=== PATIENT | male | born 2000 | race Caucasian/White ===

== ENCOUNTER 2021-02-26 17:32 | Emergency (ER) | payer MEDICAID, SELFPAY ==
--- NOTE | 2021-02-26 19:36 | HMH.EDUTC ---
[facility] [place] Disposition Clinical Impression: Viral syndrome, Exposure to COVID-19 virus Pharyngitis Qualifiers: Pharyngitis/tonsillitis etiology: unspecified etiology Qualified Code(s): J02.9 - Acute pharyngitis, unspecified Disposition: Home, Self-Care Condition on Discharge: Good Instructions: DI for Pharyngitis/Tonsillopharyngitis -- Adult, Preventing the Spread of Coronavirus Discharge Instructions Additional Instructions: Use the eye drops as directed. Strict hand washing in the house hold, because conjunctivitis is very contagious. Follow up with your regular doctor. GO TO THE ER FOR ANY WORSENING SYMPTOMS OR CONCERNS Prescriptions: Brompheniramine/Pseudoephed/Dm [Bromfed Dm Cough Syrup] 5 ml PO Q6HP PRN #240 syrup PRN Reason: Cough Transmission Status: Received by [id number] Azithromycin [Z-Antwan 250mg Tab*] 250 mg PO UD DOSE PK #6 tab Transmission Status: Received by [facility] Referrals: Provider,Referral, [Primary Care Provider] - Forms: Work/School Release Time of Disposition: 20:17 Medical Decision Making - Medical Records Medical records reviewed: No: I reviewed the patient's medical records. - Lev Inquiry Pt receiving controlled substance: No Vital Signs: 02/26/21 19:43 02/26/21 20:24 Temperature 98.1 F 98.3 F Temperature Source Oral Pulse Rate 69 Pulse Rate [Left] 62 Respiratory Rate 18 18 Blood Pressure 127/69 Blood Pressure [Right Arm] 125/63 Blood Pressure Mean [Right Arm] 83 02 Sat by Pulse Oximetry 99 - Lab Data Lab results reviewed: Yes: I reviewed the patient's lab results. Medical Decision Narrative: He adamantly refused the eye exam with numbing drops, johnson lamp, Fluorescein strips. HE is aware of the risk and dangers of refusing this. [facility] [place] HPI - General Stated complaint: Covid test,Sore throat,DELGADO Time Seen by Provider: 02/26/21 19:36 Other (Recalled from RN notes): Yes - History of Present Illness Provider Complaint: He states that for the past 2 days that has felt very tired, he has had a sore throat and he has been chilling. He denies any documented fever. He has not been vacinated against covid-19. - Related Data Previous Rx's Medication Instructions Recorded Azithromycin [Z-Antwan 250mg Tab*] 250 mg PO UD DOSE PK #6 tab 02/26/21 Brompheniramine/Pseudoephed/Dm 5 ml PO Q6HP PRN #240 syrup 02/26/21 [Bromfed Dm Cough Syrup] Allergies Allergy/AdvReac Type Severity Reaction Status Date / Time Penicillins Allergy Verified 02/26/21 19:[address] [facility] History - Hepatitis A Screen Attestation statement:: This patient has been screened for Hepatitis A risk factors. I have reviewed the patient's past medical history: Yes ROS Obtained: Yes All systems reviewed & no additional complaints - Constitutional Constitutional: Reports system reviewed and no additional complaints, except as docu - Eyes Eyes: Reports system reviewed and no additional complaints, except as docu - ENT Ears, Nose, Mouth, and Throat: Reports system reviewed and no additional complaints, except as docu - Cardiovascular Cardiovascular: Reports system reviewed and no additional complaints, except as docu - Respiratory Respiratory: Reports system reviewed and no additional complaints, except as docu - Gastrointestinal Gastrointestingal: Reports: system reviewed and no additional complaints, except as docu Physical Exam - General General appearance: alert, in no apparent distress - Head Head exam: atraumatic, normocephalic, normal inspection - Eye Eye exam: Present: normal appearance, PERRL, EOMI - ENT ENT exam: Present: mucous membranes moist, normal external ear exam - Expanded ENT Exam TM/Canal exam: Bilateral TM: erythema, bulging Mouth exam: Present: normal external inspection Teeth exam: Present: normal inspection Throat exam: Present: tonsillar erythema, tonsillomegaly. Absent: tonsillar exudate, R peritonsillar
[2021-02-26 19:43] VITALS: BP 125/63; PULSE 62; RESP 18; TEMP 36.7; O2SAT 99; BMI 35.4
[2021-02-26 20:24] VITALS: BP 127/69; PULSE 69; RESP 18; TEMP 36.8
[2021-02-27 16:02] LABS: UTC Strep Screen (Rapid) Negative (Negative)
== END 2021-02-26 20:26 | disposition home or self-care (01) ==
PROVIDERS: Emergency Provider Nurse Practitioner Family
DX: B34.9 Viral infection, unspecified (principal); Z20.822 Contact with and (suspected) exposure to COVID-19; J02.9 Acute pharyngitis, unspecified
CPT/HCPCS: 87880; 99202; G0463; U0003

== ENCOUNTER → 2021-04-14 15:31 | Outpatient (CLI) | payer MEDICAID, SELFPAY | PROVIDERS: Visit Provider Nurse Practitioner Family | DX: Z20.822 Contact with and (suspected) exposure to COVID-19 (principal) | CPT/HCPCS: C9803; U0003; U0005 ==

== ENCOUNTER 2021-04-16 09:51 | Emergency (ER) | payer MEDICAID, SELFPAY ==
[2021-04-16 09:55] VITALS: BP 144/77; PULSE 89; RESP 21; TEMP 37; O2SAT 99; BMI 35.4
--- NOTE | 2021-04-16 10:26 | XR_ITS ---
PROCEDURE: XR CHEST 2V CLINICAL HISTORY: cough COMPARISON: No exams were available for comparison FINDINGS: The cardiomediastinal silhouette and pulmonary vascularity are within normal limits. The lungs are clear without infiltrates, suspicious nodules, or pleural effusions. No acute bony abnormalities. IMPRESSION: No acute findings. Dictated by: Levon Mcmullen MD 04/16/2021 11:19 Levon Mcmullen MD in [place] 04/16/2021 11:19
--- NOTE | 2021-04-16 10:26 | HMH.EDUTC ---
[facility] [place] Disposition Clinical Impression: Viral syndrome Disposition: Home, Self-Care Condition on Discharge: Good Instructions: DI for Viral Syndrome, Ondansetron Additional Instructions: *Monitor Temp, Over the counter Motrin or Tylenol as directed/as needed Tylenol every 4 hours and Motrin every 6 hours (as long as your family doctor has told you that you can take it) for fever or pain. and straight to ER if unable to lower temp less than 101.0 after medication given *Warm salt water gargles may help to soothe the throat *Throat Lozenges *Warm fluids like tea with honey may help to soothe the throat *Sleep elevated *Humidifier/Vaporizer *Return if needed Straight to ER if any life threatening symptoms Follow up IMMEDIATELY for new or worsening symptoms or no Noticeable improvement over the next 48-72 hours. 911 for difficulty breathing or swallowing Prescriptions: Ondansetron [Zofran 4mg ODT] 4 mg PO TIDP PRN #12 tab PRN Reason: Nausea Transmission Status: Received by [id number] Referrals: Provider,Referral, MD [Primary Care Provider] - As needed Forms: Work/School Release Time of Disposition: 11:45 Medical Decision Making - Lev Inquiry Pt receiving controlled substance: No Lev was queried for this patient: No Vital Signs: 04/16/21 09:55 04/16/21 11:49 Temperature 98.6 F 98.6 F Temperature Source Oral Pulse Rate 89 Pulse Rate [Right Brachial] 89 Respiratory Rate 21 21 Blood Pressure 144/77 H Blood Pressure [Right Arm] 144/77 H Blood Pressure Mean [Right Arm] 99 Blood Pressure Source [Right Arm] Automatic Cuff Blood Pressure Position [Right Arm] Sitting 02 Sat by Pulse Oximetry 99 Oxygen Delivery Method Room Air - Radiology Data #1 Image(s): Chest Image Reviewed: Yes I have reviewed radiologist's interpretation IMPRESSION: No acute findings. Medical Decision Narrative: Discussed with patient and recommended getting retested for COVID and patient declined States that he didnt want to get tested again that he was more concerned with getting a chest xray to make sure it looked ok [facility] [place] HPI - General Stated complaint: Low O2, weakness Time Seen by Provider: 04/16/21 10:26 Mode of Arrival: Ambulatory Source of Information: Patient Limitations: No Limitations Description of Symptoms (Recalled from Triage Doc. by RN): PATIENT C/O SOA, NAUSEA, WEAKNESS, FATIGUE AND STOMACH PAINS X 3 DAYS. WAS TESTED FOR COVID ON FRIDAY AND WAS NEGATIVE HEENT Symptoms (Recalled from RN notes): Yes Resp Symptoms (Recalled from RN notes): Yes Skin Symptoms (Recalled from RN notes): No MS Symptoms (Recalled from RN notes): No Functional Status (Recalled from RN notes): WNL - History of Present Illness Provider Complaint: Patient states that he was feeling bad on Friday and having nausea, upset stomach, and fever State that he went to the [facility] and they tested him for COVID states that fever is better but he has continued to feel bad, upset stomach, and feeling SOA at times with coughing State that he is not coughing anything up States that today he was worried that he wasnt feeling any better so he came in - Related Data Previous Rx's Medication Instructions Recorded Ondansetron [Zofran 4mg ODT] 4 mg PO TIDP PRN #12 tab 04/16/21 Allergies Allergy/AdvReac Type Severity Reaction Status Date / Time Penicillins Allergy Verified 04/14/21 15:35 - Worker's Comp Is this a Worker's Comp case?: No [facility] History - Hepatitis A Screen Drug use history?: No High risk sexual behaviors?: No History of sexually transmitted infection?: No Currently employed?: No Childcare worker?: No Do you have indoor plumbing?: Yes Do you have electricity?: Yes Attestation statement:: This patient has been screened for Hepatitis A risk factors. I have reviewed the patient's past medical history: Yes Other Surgeries: Yes: Appendectomy Amputation: No Fractures: No
[2021-04-16 11:49] VITALS: BP 144/77; PULSE 89; RESP 21; TEMP 37; O2SAT 99
== END 2021-04-16 11:52 | disposition home or self-care (01) ==
PROVIDERS: Emergency Provider Nurse Practitioner
DX: B34.9 Viral infection, unspecified (principal); Z88.0 Allergy status to penicillin
CPT/HCPCS: 71046; 99202; G0463

== ENCOUNTER 2021-05-31 11:44 | Emergency (ER) | payer MEDICAID, SELFPAY ==
[2021-05-31 13:05] VITALS: BP 0/0; PULSE 0; RESP 0; TEMP -17.7; TEMP 0
== END 2021-05-31 13:06 | disposition left against medical advice (07) ==
LOC: UTC 11:50
PROVIDERS: Emergency Provider Nurse Practitioner Family
DX: Z53.21 Procedure and treatment not carried out due to patient leaving prior to being seen by health care provider (principal)

== ENCOUNTER → 2021-08-20 11:09 | Outpatient (CLI) | payer MEDICAID, SELFPAY | PROVIDERS: Visit Provider Nurse Practitioner | DX: Z20.822 Contact with and (suspected) exposure to COVID-19 (principal) ==

== ENCOUNTER → 2021-08-22 15:00 | Outpatient (CLI) | payer MEDICAID, SELFPAY | PROVIDERS: Visit Provider Nurse Practitioner | DX: U07.1 COVID-19 (principal) | CPT/HCPCS: C9803; U0003; U0005 ==

== ENCOUNTER 2021-10-28 19:18 | Emergency (ER) | payer MEDICAID, SELFPAY ==
[2021-10-28 19:58] VITALS: BP 137/79; PULSE 101; RESP 19; TEMP 38.3; O2SAT 98; BMI 38.4
[2021-10-28 20:09] LABS: Strep Scrn Group A (Rapid) Negative (Negative)
--- NOTE | 2021-10-28 20:25 | HMH.EDUTC ---
[facility] [place] Disposition Clinical Impression: Strep throat Disposition: Home, Self-Care Condition on Discharge: Good Instructions: Strep Throat, DI for Strep Throat Additional Instructions: Drink plenty of fluids. Take tylenol or ibuprofen for pain or fever. Take the medications as directed. Follow up with your regular doctor. GO TO THE ER FOR ANY WORSENING SYMPTOMS Referrals: Provider,Referral, MD [Primary Care Provider] - Forms: Work/School Release Time of Disposition: 20:52 Medical Decision Making - Medical Records Medical records reviewed: No: I reviewed the patient's medical records. - Lev Inquiry Pt receiving controlled substance: No Vital Signs: 10/28/21 19:58 10/28/21 20:57 Temperature 101 F H 98.9 F Temperature Source Oral Pulse Rate 101 H Pulse Rate [Left] 101 H Respiratory Rate 19 19 Blood Pressure 137/79 Blood Pressure [Right Arm] 137/79 Blood Pressure Mean [Right Arm] 98 02 Sat by Pulse Oximetry 98 - Lab Data Lab results reviewed: Yes: I reviewed the patient's lab results. Lab Results 10/28/21 19:51: Group A Strep Rapid Negative 10/28/21 19:51: Influenza Type A Ag Negative, Influenza Type B Ag Negative Orders (Tests/Meds): ED MEDICATIONS Discontinued Medications Generic Name Dose Route Start Last Admin Trade Name Rejiq PRN Reason Stop Dose Admin Acetaminophen 975 mg 10/28/21 20:00 10/28/21 20:04 Acetaminophen 325mg Tab PO 10/28/21 20:01 975 mg ONCE ONE Administration Cefdinir 300 mg 10/29/21 20:43 Cefdinir 300mg Capsule PO 10/29/21 20:44 ONCE ONE Cefdinir 300 mg 10/28/21 20:43 10/28/21 20:46 Cefdinir 300mg Capsule PO 10/28/21 20:44 300 mg ONCE ONE Administration [facility] [place] HPI - General Stated complaint: sore throat Time Seen by Provider: 10/28/21 20:25 Mode of Arrival: Ambulatory Source of Information: Patient Limitations: No Limitations Description of Symptoms (Recalled from Triage Doc. by RN): pt c/o weakness, cough, chills and body aches since yesterday. HEENT Symptoms (Recalled from RN notes): Yes Resp Symptoms (Recalled from RN notes): Yes Skin Symptoms (Recalled from RN notes): No MS Symptoms (Recalled from RN notes): No Functional Status (Recalled from RN notes): wnl - History of Present Illness Provider Complaint: He c/o sore throat for the past 2 days - Related Data Previous Rx's Medication Instructions Recorded Oseltamivir Phosphate [Tamiflu 75 mg PO BID #10 cap 10/30/21 75mg Capsule] Allergies Allergy/AdvReac Type Severity Reaction Status Date / Time Penicillins Allergy Verified 04/14/21 15:35 - Worker's Comp Is this a Worker's Comp case?: No [facility] History - Hepatitis A Screen Drug use history?: No High risk sexual behaviors?: No History of sexually transmitted infection?: No Currently employed?: No Childcare worker?: No Do you have indoor plumbing?: Yes Do you have electricity?: Yes Attestation statement:: This patient has been screened for Hepatitis A risk factors. I have reviewed the patient's past medical history: Yes Other Surgeries: Yes: Appendectomy Amputation: No Fractures: No - Social History Smoking Status: Current every day smoker Alcohol Intake: current Alcohol Intake Frequency:: holidays/special occasions only Occupational Status: employed ROS Obtained: Yes All systems reviewed & no additional complaints - Constitutional Constitutional: Reports as per HPI - Eyes Eyes: Denies eye discharge - ENT Ears, Nose, Mouth, and Throat: Reports as per HPI - Cardiovascular Cardiovascular: Denies chest pain - Respiratory Respiratory: Denies chest congestion, Reports cough, Denies dyspnea, Denies stridor, Denies wheezing Physical Exam - General General appearance: alert, in no apparent distress - Head Head exam: atraumatic, normocephalic, normal inspection - Eye Eye exam: Present: normal appearance, PERRL, EOMI - ENT ENT exam
[2021-10-28 20:31] LABS: UTC Influenza A Antigen Negative (Negative); UTC Influenza B Antigen Negative (Negative)
[2021-10-28 20:57] VITALS: BP 137/79; PULSE 101; RESP 19; TEMP 37.2
== END 2021-10-28 20:59 | disposition home or self-care (01) ==
PROVIDERS: Emergency Provider Nurse Practitioner Family
DX: J02.9 Acute pharyngitis, unspecified (principal); R53.1 Weakness; M79.10 Myalgia, unspecified site; F17.210 Nicotine dependence, cigarettes, uncomplicated; Z88.0 Allergy status to penicillin
CPT/HCPCS: 87430; 87804; 99212; G0463

== ENCOUNTER 2021-10-30 11:23 | Emergency (ER) | payer MEDICAID, SELFPAY ==
[2021-10-30 12:40] VITALS: BP 134/67; PULSE 75; RESP 18; TEMP 36.8; O2SAT 99; BMI 38.2
[2021-10-30 12:53] LABS: UTC Influenza A Antigen Positive (Negative); UTC Influenza B Antigen Negative (Negative)
--- NOTE | 2021-10-30 13:06 | HMH.EDUTC ---
[facility] [place] Disposition Clinical Impression: Influenza A Disposition: Home, Self-Care Condition on Discharge: Good Instructions: DI for Influenza -- Adult, Influenza Additional Instructions: Drink plenty of fluids. Take tylenol or ibuprofen for pain or fever. Take the medications as directed. Follow up with your regular doctor. GO TO THE ER FOR ANY WORSENING SYMPTOMS Prescriptions: Oseltamivir Phosphate [Tamiflu 75mg Capsule] 75 mg PO BID #10 cap Transmission Status: Pending to [id number] Referrals: Provider,Referral, [Primary Care Provider] - Forms: Work/School Release Time of Disposition: 13:19 Medical Decision Making - Medical Records Medical records reviewed: No: I reviewed the patient's medical records. - Lev Inquiry Pt receiving controlled substance: No Vital Signs: 10/30/21 12:40 Temperature 98.2 F Temperature Source Oral Pulse Rate [Right Brachial] 75 Respiratory Rate 18 Blood Pressure [Right Arm] 134/67 Blood Pressure Mean [Right Arm] 89 Blood Pressure Source [Right Arm] Automatic Cuff Blood Pressure Position [Right Arm] Sitting 02 Sat by Pulse Oximetry 99 Oxygen Delivery Method Room Air - Lab Data Lab results reviewed: Yes: I reviewed the patient's lab results. Lab Results 10/30/21 12:27: Influenza Type A Ag Positive A, Influenza Type B Ag Negative [facility] [place] HPI - General Stated complaint: fever, sore throat, cough Time Seen by Provider: 10/30/21 13:16 Mode of Arrival: Ambulatory Source of Information: Patient Limitations: No Limitations Description of Symptoms (Recalled from Triage Doc. by RN): PATIENT C/O FEVER, CHILLS, COUGH AND SORE THROAT SINCE FRIDAY HEENT Symptoms (Recalled from RN notes): Yes Resp Symptoms (Recalled from RN notes): Yes Skin Symptoms (Recalled from RN notes): No MS Symptoms (Recalled from RN notes): No Functional Status (Recalled from RN notes): WNL - History of Present Illness Provider Complaint: He is back today to have a influenza test to confirm influenza for his work. He was here 2 days ago and tested negative, but he was tested at home and it was positive. He states that he is starting to feel better, but he is still running a fever at times through the day. - Related Data Previous Rx's Medication Instructions Recorded Oseltamivir Phosphate [Tamiflu 75 mg PO BID #10 cap 10/30/21 75mg Capsule] Allergies Allergy/AdvReac Type Severity Reaction Status Date / Time Penicillins Allergy Verified 04/14/21 15:35 - Worker's Comp Is this a Worker's Comp case?: No [facility] History - Hepatitis A Screen Drug use history?: No High risk sexual behaviors?: No History of sexually transmitted infection?: No Currently employed?: No Childcare worker?: No Do you have indoor plumbing?: Yes Do you have electricity?: Yes Attestation statement:: This patient has been screened for Hepatitis A risk factors. I have reviewed the patient's past medical history: Yes Other Surgeries: Yes: Appendectomy Amputation: No Fractures: No - Social History Smoking Status: Current every day smoker Alcohol Intake: current Alcohol Intake Frequency:: holidays/special occasions only Occupational Status: employed ROS Obtained: Yes All systems reviewed & no additional complaints - Constitutional Constitutional: Reports as per HPI - Eyes Eyes: Denies eye discharge - ENT Ears, Nose, Mouth, and Throat: Reports as per HPI - Cardiovascular Cardiovascular: Denies chest pain - Respiratory Respiratory: Reports chest congestion, Reports cough, Denies dyspnea, Denies stridor, Denies wheezing Physical Exam - General General appearance: alert, in no apparent distress - Head Head exam: atraumatic, normocephalic, normal inspection - Eye Eye exam: Present: normal appearance, PERRL, EOMI - ENT ENT exam: Present: normal exam, normal oropharynx, mucous membranes moist, TM's normal bilaterally, normal external ear exam
[2021-10-30 13:23] VITALS: BP 134/67; PULSE 75; RESP 18; TEMP 36.8; O2SAT 99
== END 2021-10-30 13:33 | disposition home or self-care (01) ==
PROVIDERS: Emergency Provider Nurse Practitioner Family
DX: J10.1 Influenza due to other identified influenza virus with other respiratory manifestations (principal); F17.210 Nicotine dependence, cigarettes, uncomplicated
CPT/HCPCS: 87804; 99212; G0463

== ENCOUNTER → 2021-11-09 12:12 | Outpatient (CLI) | payer MEDICAID, SELFPAY ==
--- NOTE | 2021-11-09 12:23 | XR_ITS ---
FINAL REPORT CLINICAL HISTORY: SOB,WHEEZING COMPARISON: April 16, 2021 FINDINGS: TWO-VIEW CHEST The heart size is normal. The mediastinum is normal. There is bronchial wall thickening consistent with bronchitis. There is no pneumothorax. IMPRESSION: Bronchial wall thickening consistent with bronchitis. Reviewed, Interpreted and Dictated by Craig Ballesteros III, MD Transcribed by Lakshmi Ramos Authenticated by Craig Ballesteros III, MD on 11/09/2021 01:32:[address] [facility]
== END ==
PROVIDERS: PCP Nurse Practitioner Family; Visit Provider Nurse Practitioner Family
DX: R06.02 Shortness of breath (principal); R06.2 Wheezing
CPT/HCPCS: 71046

== ENCOUNTER 2022-05-19 13:37 | Emergency (ER) | payer BC, SELFPAY ==
[2022-05-19 15:00] VITALS: BP 134/88; PULSE 90; RESP 18; TEMP 36.8; O2SAT 98; BMI 32.3
--- NOTE | 2022-05-19 15:09 | EXP.UTC ---
Discharge Plan Disposition Patient Disposition: Home, Self-Care Condition: Good Prescriptions Prescriptions: New brpswkqujjivbxe-zoulkgrom-BG [Bromfed DM] 2-30-10 mg/5 mL syrup 5 ml PO Q6H PRN (Reason: cold symptoms) Qty: 118 0RF Referrals Follow up/Referrals: Eliz Baumann MD [Primary Care Provider] - See instructions Activity Restrictions/Add. Instructions Additional Instructions/Restrictions: covid swab was sent to lab, call tomorrow for results. self isolate until test results are known to be negative No sign of a bacterial infection. Likely viral. Viruses can take 7-14 days to run their course. Nasal saline and bulb syringe or nose Jennifer to remove nasal drainage to help with nasal congestion. Hard to eat, drink, sleep with nasal congestion so important to keep this cleaned out. Monitor temp. Tylenol or Motrin as needed for pain or fever Encourage fluids, water, Gatorade, Powerade, Pedialyte if /toddler/child Warm salt water gargles Warm fluids Sore throat lozenges Sleep elevated Humidifier/vaporizer Follow-up immediately for new or worsening symptoms or no noticeable improvement over the next 48-72 hours. Clinical Impressions Clinical Impression: Exposure to COVID-19 virus Stand Alone Forms Stand Alone Forms: Work/School Release Discharge ED Provider: Erika ([facility])Trista [facility] [place] HPI General Stated complaint: Covid + 05/19 Covid test, fever, DELGADO, Chills Mode of Arrival: Ambulatory Source of Information: Patient Time Seen by Provider: 05/19/22 15:09 HEENT Symptoms (Recalled from RN notes): Yes Resp Symptoms (Recalled from RN notes): Yes Skin Symptoms (Recalled from RN notes): No GI/ Symptoms (Recalled from RN notes): No MS Symptoms (Recalled from RN notes): No Card Symptoms (Recalled from RN notes): No Other (Recalled from RN notes): No History of Present Illness Provider Complaint: 21 yr old male presents for nasal congestion, sore throat, body aches, chills and fever. has been exposed to covid and flu. home covid test is positive Related Data Previous Rx's Medication Instructions Recorded hwbanxczwdfypbi-kdckednfvgjgzyx-TS 5 ml PO Q6H PRN cold symptoms #118 10/30/22 2 mg-30 mg-10 mg/5 mL oral syrup mL (Bromfed DM) Allergies Allergy/AdvReac Type Severity Reaction Status Date / Time Penicillins Allergy Verified 11/29/21 15:37 PFSH PFSH Social History , [employer] INTEGRATION DEVELOPER) Smoking Status: Current every day smoker alcohol intake: current current occupational status: employed Travel in the last 8 weeks: None ROS Obtained: Yes All systems reviewed & no additional complaints except as documented Constitutional Constitutional: Reports system reviewed and no additional complaints, except as documented and Reports fever(s) Eyes Eyes: Reports system reviewed and no additional complaints, except as documented ENT Ears, Nose, Mouth, and Throat: Reports system reviewed and no additional complaints, except as documented, Reports nasal congestion, Reports nasal discharge, Reports post nasal drip, Reports sinus pressure and Reports sore throat Cardiovascular Cardiovascular: Reports system reviewed and no additional complaints, except as documented Respiratory Respiratory: Reports system reviewed and no additional complaints, except as documented Gastrointestinal Gastrointestingal: Reports system reviewed and no additional complaints, except as documented Genitourinary Male Genitourinary: Reports system reviewed and no additional complaints, except as documented Musculoskeletal Musculoskeletal: Reports system reviewed and no additional complaints, except as documented Integumentary/Breasts Skin/Breast: Reports system reviewed and no additional complaints, except as documented Neurologic Neurologic: Reports system reviewed and no additional complaints, except as documented Endocrine Endocrine: Reports system reviewed and no additional complaints
[2022-05-19 15:28] VITALS: BP 134/88; PULSE 90; RESP 18; TEMP 36.8; O2SAT 98
[2022-05-19 20:34] LABS: UTC Influenza A Antigen Negative (Negative); UTC Influenza B Antigen Negative (Negative)
== END 2022-05-19 15:34 | disposition home or self-care (01) ==
PROVIDERS: Emergency Provider Nurse Practitioner Family; PCP Nurse Practitioner Family
DX: U07.1 COVID-19 (principal)
CPT/HCPCS: 87804; 99212; C9803; G0463; U0003; U0005

== ENCOUNTER 2022-09-05 14:29 | Emergency (ER) | payer BC, SELFPAY ==
--- NOTE | 2022-09-05 14:39 | EXP.UTC ---
Discharge Plan Disposition Patient Disposition: Home, Self-Care Condition: Good Prescriptions Prescriptions: New ondansetron 4 mg Tablet,Disintegrating 4 mg PO Q8H PRN (Reason: Nausea) Qty: 20 0RF No Action [id number]-[id number]-VG [Bromfed DM] 2-30-10 mg/5 mL syrup 5 ml PO Q6H PRN (Reason: cold symptoms) Qty: 118 0RF Referrals Follow up/Referrals: Provider,Referral, MD [Primary Care Provider] - See instructions Activity Restrictions/Add. Instructions Additional Instructions/Restrictions: Drink plenty of fluids. Take tylenol or ibuprofen for pain or fever. Take the medications as directed. Follow up with your regular doctor. GO TO THE ER FOR ANY WORSENING SYMPTOMS Clinical Impressions Clinical Impression: Gastroenteritis Stand Alone Forms Stand Alone Forms: Work/School Release Instructions Patient Instructions: DI for Viral Gastroenteritis -- Adult, Ondansetron Discharge ED Provider: Fortino Umana [facility] General Stated complaint: vomitting,Diarrhea Time Seen by Provider: 09/05/22 14:39 History of Present Illness Provider Complaint: He states that for the past 3 days he has had n/v/d. He has not vomited since day before yesterday, but his nausea, poor appetite, and diarrhea has continued. He has crampy abdominal pain at times. He does not have an appendix. Related Data Previous Rx's Medication Instructions Recorded kdrswzojmdwskur-qtyscxqwpjumwbd-HL 5 ml PO Q6H PRN cold symptoms #118 05/19/22 2 mg-30 mg-10 mg/5 mL oral syrup mL (Bromfed DM) ondansetron 4 mg disintegrating 4 mg PO Q8H PRN Nausea #20 tabs 09/05/22 tablet Allergies Allergy/AdvReac Type Severity Reaction Status Date / Time Penicillins Allergy Verified 11/29/21 15:37 [facility] Disclaimer: The information contained in this section may have been updated after the patient was seen, as this information can be updated by other users. Social History Smoking Status: Current every day smoker alcohol intake: current current occupational status: employed Travel in the last 8 weeks: None ROS Obtained: Yes All systems reviewed & no additional complaints except as documented Constitutional Constitutional: Denies chills, Denies fever(s) and Reports poor appetite ENT Ears, Nose, Mouth, and Throat: Denies dizziness and Denies sore throat Cardiovascular Cardiovascular: Denies dyspnea Respiratory Respiratory: Denies chest congestion, Denies cough and Denies dyspnea Gastrointestinal Gastrointestingal: Reports as per HPI, cramping, diarrhea, nausea and vomiting; Denies abdominal pain, hematochezia or melena Genitourinary Male Genitourinary: Denies hematuria, Denies urinary frequency, Denies urinary hesitancy, Denies urinary incontinence and Denies urinary urgency Musculoskeletal Musculoskeletal: Denies arthralgias Integumentary/Breasts Skin/Breast: Denies rash Neurologic Neurologic: Denies dizziness Physical Exam General General appearance: alert and in no apparent distress Head Head exam: atraumatic and normocephalic Eye Eye exam: Present normal appearance, PERRL and EOMI ENT ENT exam: Present normal exam, normal oropharynx, mucous membranes moist, TM's normal bilaterally and normal external ear exam Neck Neck exam: Present normal inspection, full ROM and trachea midline; Absent tenderness, meningismus or lymphadenopathy Chest Chest inspection: Present normal inspection and symmetric chest wall rise; Absent tenderness, rash or abscess Respiratory Respiratory exam: Present normal lung sounds bilaterally; Absent respiratory distress, wheezes or stridor Cardiovascular Cardiovascular exam: Present regular rate and normal rhythm; Absent irregular rhythm, systolic murmur, diastolic murmur or JVD Abdominal Exam Abdominal exam: Present soft and hyperactive bowel sounds; Absent distention, tenderness, guarding, rebound, rigidity, psoas sign, obturator s
[2022-09-05 14:48] VITALS: BP 121/67; PULSE 67; RESP 18; TEMP 36.9; O2SAT 100; BMI 36.1
[2022-09-05 15:31] VITALS: BP 121/67; PULSE 67; RESP 18; TEMP 36.9; O2SAT 100
== END 2022-09-05 15:32 | disposition home or self-care (01) ==
PROVIDERS: Emergency Provider Nurse Practitioner Family
DX: K52.9 Noninfective gastroenteritis and colitis, unspecified (principal)
CPT/HCPCS: 99212; 99213; G0463

== ENCOUNTER 2022-10-21 08:03 | Emergency (ER) | payer BC, SELFPAY ==
--- NOTE | 2022-10-21 08:19 | EXP.UTC ---
Discharge Plan Disposition Patient Disposition: Home, Self-Care Condition: Good Prescriptions Prescriptions: New benzonatate [benzonatate] 100 mg capsule 100 mg PO TIDP PRN (Reason: Cough) Qty: 30 0RF methylprednisolone 4 mg Tablets,Dose Pack 4 mg PO DIRECTED Qty: 21 0RF cefdinir 300 mg capsule 300 mg PO BID Qty: 20 0RF Referrals Follow up/Referrals: Eliz Baumann MD [Primary Care Provider] - See instructions Activity Restrictions/Add. Instructions Additional Instructions/Restrictions: Drink plenty of fluids. Take tylenol or ibuprofen for pain or fever. Take the medications as directed. Follow up with your regular doctor. GO TO THE ER FOR ANY WORSENING SYMPTOMS Clinical Impressions Clinical Impression: Strep throat Stand Alone Forms Stand Alone Forms: Work/School Release Instructions Patient Instructions: Strep Throat, DI for Strep Throat Discharge ED Provider: Fortino Umana [facility] HPI General Stated complaint: sore throat hard to breathe- aches-chill Time Seen by Provider: 10/21/22 08:14 History of Present Illness Provider Complaint: He states that he has had a sore throat and fever for the past 2 days. Related Data Previous Rx's Medication Instructions Recorded benzonatate 100 mg capsule 100 mg PO TIDP PRN Cough #30 caps 10/21/22 cefdinir 300 mg capsule 300 mg PO BID #20 caps 10/21/22 methylprednisolone 4 mg tablets in 4 mg PO DIRECTED #21 tabs 10/21/22 a dose pack Allergies Allergy/AdvReac Type Severity Reaction Status Date / Time Penicillins Allergy Verified 10/21/22 08:30 [facility] Disclaimer: The information contained in this section may have been updated after the patient was seen, as this information can be updated by other users. Social History Smoking Status: Current every day smoker alcohol intake: current current occupational status: employed Travel in the last 8 weeks: None ROS Obtained: Yes All systems reviewed & no additional complaints except as documented Constitutional Constitutional: Reports chills and Reports fever(s) Eyes Eyes: Denies eye discharge ENT Ears, Nose, Mouth, and Throat: Reports as per HPI Cardiovascular Cardiovascular: Denies chest pain Respiratory Respiratory: Denies chest congestion and Reports cough Gastrointestinal Gastrointestingal: Reports nausea; Denies abdominal pain, constipation, cramping, diarrhea or vomiting Musculoskeletal Musculoskeletal: Denies arthralgias Integumentary/Breasts Skin/Breast: Denies rash Neurologic Neurologic: Denies paresthesias Physical Exam General General appearance: alert and in no apparent distress Head Head exam: atraumatic, normocephalic and normal inspection Eye Eye exam: Present normal appearance, PERRL and EOMI ENT ENT exam: Present mucous membranes moist and normal external ear exam Expanded ENT Exam TM/Canal exam: Bilateral TM: erythema and bulging Nose exam: Absent sinus tenderness Mouth exam: Present normal external inspection; Absent drooling Teeth exam: Present normal inspection Throat exam: Present tonsillar erythema, tonsillomegaly and tonsillar exudate Neck Neck exam: Present normal inspection, full ROM and trachea midline; Absent tenderness, meningismus or lymphadenopathy Chest Chest inspection: Present normal inspection and symmetric chest wall rise; Absent tenderness Respiratory Respiratory exam: Present normal lung sounds bilaterally; Absent respiratory distress, wheezes or stridor Cardiovascular Cardiovascular exam: Present regular rate and normal rhythm; Absent systolic murmur or diastolic murmur Abdominal Exam Abdominal exam: Present soft and normal bowel sounds; Absent distention, tenderness, guarding, rebound or rigidity Extremities Exam Extremities exam: Present normal inspection and normal capillary refill; Absent calf tenderness Back Exam Back exam: Present normal inspection and fu
[2022-10-21 08:20] VITALS: BP 127/82; PULSE 103; RESP 20; TEMP 38.1; O2SAT 97; BMI 39.3
[2022-10-21 08:30] LABS: UTC Strep Screen (Rapid) Positive (Negative)
[2022-10-21 08:49] VITALS: BP 127/82; PULSE 103; RESP 20; TEMP 37.6; O2SAT 97
== END 2022-10-21 08:40 | disposition home or self-care (01) ==
PROVIDERS: Emergency Provider Nurse Practitioner Family; PCP Nurse Practitioner Family
DX: J02.0 Streptococcal pharyngitis (principal); R05.1 Acute cough; R50.9 Fever, unspecified; F17.200 Nicotine dependence, unspecified, uncomplicated
CPT/HCPCS: 87880; 99212; 99214; G0463

== ENCOUNTER 2023-04-03 09:02 | Emergency (ER) | payer BC, SELFPAY ==
[2023-04-03 09:10] VITALS: BP 134/77; PULSE 106; RESP 18; TEMP 36.9; O2SAT 99; BMI 39.4
--- NOTE | 2023-04-03 09:12 | EXP.UTC ---
Discharge Plan Disposition Patient Disposition: Home, Self-Care Condition: Good Prescriptions Prescriptions: New cefdinir 300 mg capsule 300 mg PO BID Qty: 20 0RF Referrals Follow up/Referrals: Eliz Baumann MD [Primary Care Provider] - See instructions Activity Restrictions/Add. Instructions Additional Instructions/Restrictions: Drink plenty of fluids. Take tylenol or ibuprofen for pain or fever. Take the medications as directed. Follow up with your regular doctor. GO TO THE ER FOR ANY WORSENING SYMPTOMS Clinical Impressions Clinical Impression: Pharyngitis Stand Alone Forms Stand Alone Forms: Work/School Release Instructions Patient Instructions: DI for Pharyngitis/Tonsillopharyngitis -- Child, Sore Throat Discharge ED Provider: Fortino Umana [facility] HPI General Stated complaint: sore throat, tired Time Seen by Provider: 04/03/23 09:12 History of Present Illness Provider Complaint: He c/o sore throat, chills and body aches since around 0200 this am. Related Data Previous Rx's Medication Instructions Recorded cefdinir 300 mg capsule 300 mg PO BID #20 caps 04/03/23 Allergies Allergy/AdvReac Type Severity Reaction Status Date / Time Penicillins Allergy Verified 04/03/23 09:18 [facility] Disclaimer: The information contained in this section may have been updated after the patient was seen, as this information can be updated by other users. Social History Smoking Status: Current every day smoker alcohol intake: current current occupational status: employed Travel in the last 8 weeks: None ROS Obtained: Yes All systems reviewed & no additional complaints except as documented Constitutional Constitutional: Reports chills and Reports fever(s) Eyes Eyes: Denies eye discharge ENT Ears, Nose, Mouth, and Throat: Reports as per HPI Cardiovascular Cardiovascular: Denies chest pain Respiratory Respiratory: Denies chest congestion and Reports cough Gastrointestinal Gastrointestingal: Reports nausea; Denies abdominal pain, constipation, cramping, diarrhea or vomiting Musculoskeletal Musculoskeletal: Denies arthralgias Integumentary/Breasts Skin/Breast: Denies rash Neurologic Neurologic: Denies paresthesias Physical Exam General General appearance: alert and in no apparent distress Head Head exam: atraumatic, normocephalic and normal inspection Eye Eye exam: Present normal appearance, PERRL and EOMI ENT ENT exam: Present mucous membranes moist and normal external ear exam Expanded ENT Exam TM/Canal exam: Bilateral TM: erythema and bulging Nose exam: Absent sinus tenderness Mouth exam: Present normal external inspection; Absent drooling Teeth exam: Present normal inspection Throat exam: Present tonsillar erythema, tonsillomegaly and tonsillar exudate Neck Neck exam: Present normal inspection, full ROM and trachea midline; Absent tenderness, meningismus or lymphadenopathy Chest Chest inspection: Present normal inspection and symmetric chest wall rise; Absent tenderness Respiratory Respiratory exam: Present normal lung sounds bilaterally; Absent respiratory distress, wheezes or stridor Cardiovascular Cardiovascular exam: Present regular rate and normal rhythm; Absent systolic murmur or diastolic murmur Abdominal Exam Abdominal exam: Present soft and normal bowel sounds; Absent distention, tenderness, guarding, rebound or rigidity Extremities Exam Extremities exam: Present normal inspection and normal capillary refill; Absent calf tenderness Back Exam Back exam: Present normal inspection and full ROM; Absent tenderness, CVA tenderness (R) or CVA tenderness (L) Neurological Exam Neurological exam: Present alert, oriented X3 and CN II-XII intact Psychiatric Psychiatric exam: Present normal affect and normal mood Skin Skin exam: Present warm, dry, intact and normal color Medical Decision Making Medical Records [facility]
[2023-04-03 09:28] LABS: UTC Strep Screen (Rapid) Negative (Negative)
[2023-04-03 09:55] VITALS: BP 134/77; PULSE 106; RESP 18; TEMP 36.9; O2SAT 99
== END 2023-04-03 09:55 | disposition home or self-care (01) ==
PROVIDERS: Emergency Provider Nurse Practitioner Family; PCP Nurse Practitioner Family
DX: J02.9 Acute pharyngitis, unspecified (principal); R68.83 Chills (without fever); F17.210 Nicotine dependence, cigarettes, uncomplicated
CPT/HCPCS: 87635; 87880; 99212; 99214; G0463

== ENCOUNTER 2023-04-08 08:02 | Emergency (ER) | payer BC, SELFPAY ==
[2023-04-08 08:21] VITALS: BP 129/62; PULSE 60; RESP 16; TEMP 36.8; O2SAT 98; BMI 37.2
--- NOTE | 2023-04-08 08:25 | EXP.UTC ---
Discharge Plan Disposition Patient Disposition: Home, Self-Care Condition: Good Prescriptions Prescriptions: New methylprednisolone 4 mg Tablets,Dose Pack 4 mg PO DIRECTED Qty: 21 0RF azithromycin [Zithromax] 250 mg tablet 250 mg PO UD DOSE PK Qty: 6 0RF Rx Instructions: Take two (2) tablets today, then one (1) tablet days #2 thru #5 [id number]-[id number]-UK [Bromfed DM] 2-30-10 mg/5 mL Syrup 5 ml PO Q6H PRN (Reason: Cough) Qty: 240 0RF No Action cefdinir 300 mg capsule 300 mg PO BID Qty: 20 0RF Referrals Follow up/Referrals: Eliz Baumann MD [Primary Care Provider] - See instructions Activity Restrictions/Add. Instructions Additional Instructions/Restrictions: Drink plenty of fluids. Take tylenol or ibuprofen for pain or fever. Stop the cefdinir (antibiotics) that you are on and start the new medications. Take the medications as directed. Follow up with your regular doctor. GO TO THE ER FOR ANY WORSENING SYMPTOMS Clinical Impressions Clinical Impression: Pharyngitis, Sinusitis Stand Alone Forms Stand Alone Forms: Work/School Release Instructions Patient Instructions: DI for Sinusitis Discharge ED Provider: Fortino Umana [facility] General Stated complaint: sore throat, cough Mode of Arrival: Ambulatory Source of Information: Patient Limitations: No Limitations Time Seen by Provider: 04/08/23 08:25 Description of Symptoms (Recalled from Triage Doc. by RN): Pt c/o cough chills sore throat and headache since last week. States that he was seen here last Friday and tested for strep and covid which were negative and was given an antibiotic which isn't working. HEENT Symptoms (Recalled from RN notes): Yes Resp Symptoms (Recalled from RN notes): Yes Skin Symptoms (Recalled from RN notes): No MS Symptoms (Recalled from RN notes): No Functional Status (Recalled from RN notes): na History of Present Illness Provider Complaint: He is back today with complaints of not getting better. He continues to have sinus congestion, sore throat and a cough. Related Data Previous Rx's Medication Instructions Recorded cefdinir 300 mg capsule 300 mg PO BID #20 caps 04/03/23 azithromycin 250 mg tablet 250 mg PO UD DOSE PK #6 tabs 04/08/23 (Zithromax) pqjxogtyebigvsd-ijsroureqrztiri-OD 5 ml PO Q6H PRN Cough #240 mL 04/08/23 2 mg-30 mg-10 mg/5 mL oral syrup (Bromfed DM) methylprednisolone 4 mg tablets in 4 mg PO DIRECTED #21 tabs 04/08/23 a dose pack Allergies Allergy/AdvReac Type Severity Reaction Status Date / Time Penicillins Allergy Verified 04/03/23 09:18 Worker's Comp Is this a Worker's Comp case?: No PFSH PFS Disclaimer: The information contained in this section may have been updated after the patient was seen, as this information can be updated by other users. Social History Smoking Status: Current every day smoker alcohol intake: current current occupational status: employed Travel in the last 8 weeks: None ROS Obtained: Yes All systems reviewed & no additional complaints except as documented Constitutional Constitutional: Reports chills and Denies fever(s) Eyes Eyes: Denies eye discharge ENT Ears, Nose, Mouth, and Throat: Reports as per HPI Cardiovascular Cardiovascular: Denies chest pain Respiratory Respiratory: Denies chest congestion and Reports cough Gastrointestinal Gastrointestingal: Reports nausea; Denies abdominal pain, constipation, cramping, diarrhea or vomiting Musculoskeletal Musculoskeletal: Denies arthralgias Integumentary/Breasts Skin/Breast: Denies rash Neurologic Neurologic: Denies paresthesias Physical Exam General General appearance: alert and in no apparent distress Eye Eye exam: Present normal appearance, PERRL and EOMI ENT ENT exam: Present mucous membranes moist and normal external ear exam Expanded ENT Exam External ear exam: Present normal
[2023-04-08 08:48] LABS: Adenovirus,PCR Not Detected (NotDetected); Bordetella Pertussis Not Detected (NotDetected); Chlamydophila Pneumoniae, PCR Not Detected (NotDetected); Coronavirus 19, PCR Not Detected (NotDetected); Coronavirus 229E Not Detected (NotDetected); Coronavirus NL63 Not Detected (NotDetected); Coronavirus OC43 Not Detected (NotDetected); Coronovirus HKU1,PCR Not Detected (NotDetected); Human Metapneumovirus Not Detected (NotDetected); Influenza A, PCR Not Detected (NotDetected); Influenza AH1, 2009 Not Detected (NotDetected); Influenza AH1, PCR Not Detected (NotDetected); Influenza AH3,PCR Not Detected (NotDetected); Influenza B, PCR Not Detected (NotDetected); Mycoplasma Pneumoniae, PCR Not Detected (NotDetected); Parainfluenza 1, PCR Not Detected (NotDetected); Parainfluenza 2, PCR Not Detected (NotDetected); Parainfluenza 3, PCR Not Detected (NotDetected); Parainfluenza 4, PCR Not Detected (NotDetected); Respiratory Syncytial Virus Not Detected (NotDetected); Rhinovirus/Enterovirus Not Detected (NotDetected)
[2023-04-08 08:54] VITALS: BP 129/62; PULSE 60; RESP 16; TEMP 36.8; O2SAT 98
== END 2023-04-08 08:55 | disposition home or self-care (01) ==
PROVIDERS: Emergency Provider Nurse Practitioner Family; PCP Nurse Practitioner Family
DX: J01.90 Acute sinusitis, unspecified (principal); J02.9 Acute pharyngitis, unspecified; F17.210 Nicotine dependence, cigarettes, uncomplicated
CPT/HCPCS: 87581; 87632; 87798; 99212; 99214; G0463

== ENCOUNTER → 2023-07-08 13:34 | Outpatient (CLI) | payer BC, SELFPAY ==
--- NOTE | 2023-07-08 13:44 | ECG_ITS ---
APPROVED REPORT Exam: Resting ECG HR:70 bpm ECG Measurements Heart Rate 70 AXES NV 140 P -20 QRSd 92 QRS 49 QT 357 T -1 QTc 377 Conclusion SINUS RHYTHM POSSIBLE INFERIOR MYOCARDIAL INFARCTION , OF INDETERMINATE AGE [30 ms Q WAVE IN II/aVF] ABNORMAL ECG UNCONFIRMED REPORT Electronically signed by : Bubba Fagan MD 07/09/2023 18:40:43
[2023-07-08 14:22] LABS: Basophils # 0.1 K/mm3 (0-0.2); Basophils % 0.4 % (0.1-2.0); Eosinophils # 0.3 K/mm3 (0.0-0.4); Eosinophils % 2.7 % (0.1-12.0); Hemoglobin 14.7 g/dL (14.1-18.0); Lymphocytes % 18.9 % (10-50); Mean Corpuscular HGB Conc 34.3 g/dL (31.8-35.4); Mean Corpuscular Hemoglobin 28.8 pg (27.0-31.2); Mean Platelet Volume 6.5 fl (7.4-10.4); Monocytes # 0.5 K/mm3 (0.1-1.0); Monocytes % 4.6 % (1.7-9.3); Neutrophils # 7.6 K/mm3 (1.8-7.8); Neutrophils % 73.3 % (37.0-80.0); Platelet Count 354 K/mm3 (142-424); Red Blood Count 5.12 M/mm3 (4.60-6.20); Red Cell Distribution Width 13.5 % (11.5-17.5); White Blood Count 10.3 K/mm3 (4.8-10.8)
[2023-07-08 14:36] LABS: Chloride 103 mmol/L (98-107); Sodium 137 mmol/L (136-145)
[2023-07-08 14:38] LABS: Albumin Level 4.3 g/dl (3.5-5.0); Albumin/Globulin Ratio 1.5 (1.1-1.8); Anion Gap 9.3 mEq/L (5-15); Blood Urea Nitrogen 16 mg/dl (9-20); Calcium 8.7 mg/dl (8.4-10.2); Carbon Dioxide 29 mmol/L (22.0-30.0); Estimated Glomerular Filt Rate 118 ml/min (>60); GFR (African American) 143 ML/MIN (>60); Globulin 2.9 g/dL (1.3-3.2); Glucose 96 mg/dl (74-100); Potassium 4.3 mmoL/L (3.5-5.1); Total Protein,Serum 7.2 g/dl (6.3-8.2)
[2023-07-08 14:39] LABS: Alanine Aminotransferase 41 U/L (12-78); Alkaline Phosphatase 89 U/L (38-126); Aspartate Amino Transferase 38 U/L (17-59); Bilirubin,Total 0.4 mg/dl (0.2-1.3)
== END ==
LOC: LAB 13:37
PROVIDERS: PCP Physician Assistant; Visit Provider Nurse Practitioner
DX: J35.1 Hypertrophy of tonsils (principal)
CPT/HCPCS: 36415; 80053; 85025; 93005

== ENCOUNTER 2023-07-15 10:03 | Emergency (ER) | payer BC, SELFPAY ==
[2023-07-15 10:03] VITALS: BP 131/78; PULSE 108; RESP 20; TEMP 36.9; O2SAT 96; BMI 38.3
--- NOTE | 2023-07-15 10:32 | EXP.UTC ---
Discharge Plan Disposition Patient Disposition: Home, Self-Care Condition: Good Prescriptions Prescriptions: New cefdinir 300 mg capsule 300 mg PO BID Qty: 20 0RF methylprednisolone 4 mg Tablets,Dose Pack 4 mg PO DIRECTED Qty: 21 0RF [id number]-iehkjknfq-TM [Bromfed DM] 2-30-10 mg/5 mL Syrup 5 ml PO Q6H PRN (Reason: Cough) Qty: 240 0RF Referrals Follow up/Referrals: Eliz Baumann MD [Primary Care Provider] - See instructions Activity Restrictions/Add. Instructions Additional Instructions/Restrictions: Drink plenty of fluids. Take tylenol or ibuprofen for pain or fever. Take the medications as directed. Follow up with your regular doctor. GO TO THE ER FOR ANY WORSENING SYMPTOMS Clinical Impressions Clinical Impression: Pharyngitis Stand Alone Forms Stand Alone Forms: Work/School Release Instructions Patient Instructions: Strep Throat, DI for Strep Throat Discharge ED Provider: Fortino Umana [facility] [place] [place] General Stated complaint: sore throat, weakness Time Seen by Provider: 07/15/23 10:32 History of Present Illness Provider Complaint: He states that he has had a very sore throat, chills, low grade fever and malaise for the past 3 days. Related Data Previous Rx's Medication Instructions Recorded lnozmvgnfiiikuz-rdrspgskghtlmvi-ZB 5 ml PO Q6H PRN Cough #240 mL 07/15/23 2 mg-30 mg-10 mg/5 mL oral syrup (Bromfed DM) cefdinir 300 mg capsule 300 mg PO BID #20 caps 07/15/23 methylprednisolone 4 mg tablets in 4 mg PO DIRECTED #21 tabs 07/15/23 a dose pack Allergies Allergy/AdvReac Type Severity Reaction Status Date / Time Penicillins Allergy Verified 06/03/23 13:13 [facility] Disclaimer: The information contained in this section may have been updated after the patient was seen, as this information can be updated by other users. Medical History (Updated 07/15/23 @ 11:21 by Fortino Umana APRN) Enlarged tonsils Social History Smoking Status: Current every day smoker alcohol intake: current current occupational status: employed Travel in the last 8 weeks: None ROS Obtained: Yes All systems reviewed & no additional complaints except as documented Constitutional Constitutional: Reports chills and Reports fever(s) Eyes Eyes: Denies eye discharge ENT Ears, Nose, Mouth, and Throat: Reports as per HPI Cardiovascular Cardiovascular: Denies chest pain Respiratory Respiratory: Denies chest congestion and Reports cough Gastrointestinal Gastrointestingal: Reports nausea; Denies abdominal pain, constipation, cramping, diarrhea or vomiting Musculoskeletal Musculoskeletal: Denies arthralgias Integumentary/Breasts Skin/Breast: Denies rash Neurologic Neurologic: Denies paresthesias Physical Exam General General appearance: alert and in no apparent distress Head Head exam: atraumatic, normocephalic and normal inspection Eye Eye exam: Present normal appearance, PERRL and EOMI ENT ENT exam: Present mucous membranes moist and normal external ear exam Expanded ENT Exam TM/Canal exam: Bilateral TM: erythema and bulging Nose exam: Absent sinus tenderness Mouth exam: Present normal external inspection; Absent drooling Teeth exam: Present normal inspection Throat exam: Present tonsillar erythema, tonsillomegaly and tonsillar exudate Neck Neck exam: Present normal inspection, full ROM and trachea midline; Absent tenderness, meningismus or lymphadenopathy Chest Chest inspection: Present normal inspection and symmetric chest wall rise; Absent tenderness Respiratory Respiratory exam: Present normal lung sounds bilaterally; Absent respiratory distress, wheezes or stridor Cardiovascular Cardiovascular exam: Present regular rate and normal rhythm; Absent systolic murmur or diastolic murmur Abdominal Exam Abdominal exam: Present soft and normal bowel sounds; Absent distention, tenderness, guarding, rebound o
[2023-07-15 10:49] LABS: UTC Strep Screen (Rapid) Negative (Negative)
[2023-07-15 11:31] VITALS: BP 131/78; PULSE 108; RESP 20; TEMP 36.9; O2SAT 96
== END 2023-07-15 11:31 | disposition home or self-care (01) ==
PROVIDERS: Emergency Provider Nurse Practitioner Family; PCP Nurse Practitioner Family
DX: J02.9 Acute pharyngitis, unspecified (principal); R50.9 Fever, unspecified; R53.81 Other malaise; R53.1 Weakness; F17.210 Nicotine dependence, cigarettes, uncomplicated
CPT/HCPCS: 87880; 99212; 99214; G0463

== ENCOUNTER 2023-07-29 10:54 | Outpatient (CLI) | payer BC, SELFPAY ==
--- NOTE | 2023-07-29 10:58 | CA_ITS ---
APPROVED REPORT EXAM: Comprehensive 2D, Doppler, and color-flow Echocardiogram Hat Steamer: Layla Polanco RVT Ht: 5 ft 8 in Wt: 254lbs BSA: 2.26 BP: 116/71 mmHg Indications: PRE-OP,ABN EKG,SMOKER 2D Dimensions LA Volume 50.70 mL LA Volume Index 22.43 mL/m2 (M/F) 16-34 M-Mode Dimensions RVDd 2.33 cm (0.9-2.6) LA Diam 4.01 cm (1.9-4.0) LVDd 4.86 cm (3.5-5.7) LVDs 3.13 cm (3.5-5.7) IVSd 1.09 cm (0.6-1.1) PWd 0.56 cm (0.6-1.1) EF (Teich) 65.00% FS 35.60% EDV (Teich) 110.70 mL TAPSE 2.91 (<1.7) ESV (Teich) 38.80 mL LV Diastology E Decel Time 193 (160-240 msec) E/A Ratio 1.9 Aortic Valve MINDA Index 2.67 cm2/m2 AoV Peak Ravi. 99.0 (50-130 cm/s) AO Peak GR. 3.90 mmHg AO Mean GR. 2.00 (<5 mmHg) AO VTI 18.3 (18-25 cm) MINDA (VTI) 6.20 (2.5-4.5 cm2) Mitral Valve MV E Max Ravi. 81.0 (40-130 cm/s) MV A Velocity 42.0 (40-130 cm/s) E/A Ratio 1.91 MV PHT 57.0 ms Pulmonary Valve PV Peak Velocity 87.0 (50-150 cm/s) Tricuspid Valve TR P. Velocity 218.00 cm/s RAP Estimate 10.00 mmHg RVSP 28.90 mmHg Left Ventricle The left ventricle is normal size. The left ventricular systolic function is normal. The left ventricular ejection fraction is within the normal range. There is normal left ventricular wall thickness. There is normal LV segmental wall motion. The left ventricular diastolic function is normal. LVEF is 55%. Right Ventricle The right ventricle is mildly dilated. The right ventricular systolic function is normal. Atria The left atrium size is normal. The right atrium size is normal. There is no Doppler evidence of interatrial shunt. Aortic Valve The aortic valve opens well. There is no aortic valvular stenosis. No aortic regurgitation is present. Mitral Valve The mitral valve is normal in structure. Trace mitral regurgitation. Tricuspid Valve The tricuspid valve leaflets are thin and pliable. Trace tricuspid regurgitation. There is insufficent TR jet to estimate RVSP. Pulmonic Valve The pulmonary valve is normal in structure. Trace pulmonic regurgitation. Great Vessels The aortic root is normal in size. The ascending aorta is normal in size. IVC is normal in size and collapses >50% with inspiration. Pericardium There is no pericardial effusion. Other Information Study Quality: Fair Conclusion Normal biventricular systolic function. Mild RV dilation. No significant valvular stenosis or regurgitation. Electronically signed by : Madelyn Mills MD 08/01/2023 14:38:42
== END 2023-07-29 23:59 ==
LOC: RT 10:55
PROVIDERS: PCP Physician Assistant; Visit Provider Internal Medicine
DX: R94.31 Abnormal electrocardiogram [ECG] [EKG] (principal)
CPT/HCPCS: 93306

== ENCOUNTER 2023-08-13 06:55 | Outpatient (CLI) | payer BC, SELFPAY ==
[2023-08-13] VITALS (7 sets, daily range): BP systolic 104–123; BP diastolic 62–94; PULSE 64–78; RESP 18; O2SAT 96–98; BMI 38.6
--- NOTE | 2023-08-13 07:17 | CT_ITS ---
APPROVED REPORT Engine Repairer: CLINICAL INDICATION Chest Pain TECHNIQUE Image Acquisition: A 128 slice MDCT scanner (Fishin' Gluea View) was used for data acquisition. A noncontrast coronary calcium scan was performed. A CT attenuation threshold of 130 Hounsfield units (HU) was used for the detection of calcium in contiguous voxels of 1 sq mm in area to be counted as individual lesions. Bolus tracking in the ascending aorta with a threshold of 180 HU was performed. Immediately afterwards, ECG synchronized cardiac CT was then performed from the cardiac base to apex using retrospective gating with ECG tube current modulation. A total of 85 mL of Isovue 370 mg/mL contrast medium was administered at 5 mL/sec followed by a saline flush using a biphasic injection protocol. A tube voltage of 120 KVp was used. The patient received the following medications prior to the cardiac CT. 150 mg of oral metoprolol 10 mg of intravenous metoprolol 15 mg of oral ivabradine 0.8 mg of sublingual nitroglycerin The average heart rate at the time of acquisition was 65 bpm and regular. Image Reconstruction Transaxial images were reconstructed at 0.67 mm slide thickness. Data was reviewed interactively on an advanced workstation capable of 2 and 3-dimensional displays in all conventional reconstruction formats, including multiplanar reformations, maximum intensity projections, curved multiplanar reformations, and volume rendered reconstructions. When applicable, selected routine images describing the relevant coronary anatomy and pathology were saved and sent to PACS. Complications None Technical Quality Overall image quality was suboptimal. Coronary artery opacification was adequate. Total DLP (Dose-Length Product) is 1159.3 mGy-cm. The reported value represents the total of one or more individual components during the CT acquisition of this date and at this time, and as such, the same value may appear in more than one CT report depending on the interpreting/reporting physicians. COMPARISON None FINDINGS CT Coronary Calcium Scoring LMA (Left Main Artery) = 0 LAD (Left Anterior Descending) = 0 LCX (Left Coronary Circumflex) = 0 RCA (Right Coronary Artery) = 0 Total Calcium Score = 0 using the AJ-130 method. The interpretation of the calcium heart score is based on the following continuum*: 0 = no calcified plaque detected (risk of coronary artery disease is very low ??? less than 5%) 1-10 = calcium detected in extremely minimal levels (risk of coronary diseases is still low ??? less than 10%) 11-100 = mild levels of plaque detected with certainty (mild or minimal narrowing of heart arteries is likely) 101-400 = definite,at least moderate levels of plaque detected (relatively high risk of a heart attack within 3-5 years) >401-999 = extensive levels of plaque detected (high risk of heart attack, high levels of vascular disease are present, high likelihood of at least one significant coronary narrowing) *The calcium heart score quantifies the burden of coronary calcification/plaque in the coronary arteries. The calcium heart score is not able to evaluate the presence or burden of non-calcified (i.e. soft) plaque. There is no identifiable calcification in the aortic valve, mitral annulus or mitral valve, pericardium, or myocardium. Coronary CT Angiography The coronary arterial system is right dominant. Quantitative Stenosis Grading: Left Main (LM): The left main originates normally from the left sinus of Valsalva. The LM bifurcates into the left anterior descending artery and left circumflex artery. The LM is patent with no evidence of atherosclerosis. Left Anterior Descending (LAD) and Diagonal Branches: The LAD gives off 3 diagonal branches. The LAD and its branches are patent with no evidence of atherosclerosis. There is no evidence of LAD bridge. Left Circumflex (LCX) and Obtuse Marginals (OM): The LCX gives off 1 Obtuse Marginal (OM) branch(es). The LCX and its branches are patent with no evidence of atherosclerosis. Right Coronary Artery (RCA): The RCA originates normally from the right sinus of Valsalva. The RCA gives off a posterior descending artery (PDA) and posterolateral (PL) branches. The RCA and its branches are patent with no evidence of atherosclerosis. Non-Coronary Cardiac Findings: Analysis of the left ventricular (LV) structure and function was performed after 3-D reconstruction of the LV from axial images, with user-corrected automatic contouring for assessment of LV volumes and user-defined reconstruction from oblique planes for measurement of 3-D cardiac structure and function. LVEDV: 269 mL LVESV: 128 mL SV: 141 mL LVEF: 53 % -The left ventricle is normal in size with normal left ventricular systolic function. -There is no left atrial appendage filling defect. Two right pulmonary veins and two left pulmonary veins drain normally into the left atrium. -No pericardial thickening or calcification. -Central and branch pulmonary arteries in the [id number] are unremarkable. -Thoracic aorta within the visualized thoracic aortic-branches in the [id number] is unremarkable. Extracardiac Structures No significant extra-cardiac findings. Note, however, that this study is focused on the cardiac findings. IMPRESSION -Suboptimal image quality. -No coronary calcification with an Agatston score = 0 using the AJ-130 method. -No evidence of significant flow-limiting atherosclerosis of the coronary arteries. -No evidence of coronary anomalies. -CAD-RADS 0. Management recommendations per ACC/AHA guidelines*, as clinically appropriate. *Recommendations: CAD RADS 0: Reassurance. Consider non-atherosclerotic causes of chest pain. CAD RADS 1: Consider non-atherosclerotic causes of chest pain. Consider preventive therapy and risk factor modification. CAD RADS 2: Consider non-atherosclerotic causes of chest pain. Consider preventive therapy and risk factor modification, particularly for patients with nonobstructive plaque in multiple segments. CAD RADS 3: Consider further functional testing. Consider symptom-guided anti-ischemic and preventive pharmacotherapy as well as risk factor modification per published guideline statements. CAD RADS 4A: Consider further functional testing or invasive coronary angiography with revascularization per published guideline statements. Consider symptom-guided anti-ischemic and preventive pharmacotherapy as well as risk factor modification per published guideline statements. CAD RADS 4B: Invasive coronary angiography recommended with revascularization per published guideline statements. Consider symptom-guided anti-ischemic and preventive pharmacotherapy as well as risk factor modification per published guideline statements. CAD RADS 5: Consider invasive angiography and/or viability assessment with revascularization per published guideline statements. Consider symptom-guided anti-ischemic and preventive pharmacotherapy as well as risk factor modification per published guideline statements. CRITICAL RESULT None COMMUNICATION Per this written report The coronary and cardiac findings of this CCTA were reviewed, reported, and signed by Ashwin Mills MD (Banquet Kitchen Supervisor) Conclusion Electronically signed by : Madelyn Mills MD 08/13/2023 13:08:44
[2023-08-13] MEDS: IVABRADINE HCL 7.5MG TABLET 15 MG PO (07:34)
[2023-08-13] MEDS: METOPROLOL TARTRATE 25MG TABLET 25 MG (07:34)
[2023-08-13] MEDS: METOPROLOL TARTRATE 50MG TABLET 50 MG (07:34)
[2023-08-13 07:54] LABS: Anion Gap 10.8 mEq/L (5-15); Blood Urea Nitrogen 15 mg/dl (9-20); Calcium 8.6 mg/dl (8.4-10.2); Carbon Dioxide 30 mmol/L (22.0-30.0); Chloride 102 mmol/L (98-107); Creatinine Clearance Estimated 230 mL/min (50-200); Estimated Glomerular Filt Rate 118 ml/min (>60); GFR (African American) 143 ML/MIN (>60); Glucose 89 mg/dl (74-100); Potassium 3.8 mmoL/L (3.5-5.1); Sodium 139 mmol/L (136-145)
[2023-08-13] MEDS: METOPROLOL TARTRATE 50MG TABLET *IVABRADINE+METOPROLOL REGIMINE 75 MG PO (08:18)
[2023-08-13] MEDS: NITROGLYCERIN 0.4MG SL TABLET 0.800000000000000044 MG SL (08:45)
[2023-08-13] MEDS: METOPROLOL TARTRATE 5MG/5ML VIAL *IVABRADINE+METOPROLOL REGIMINE 5 MG IV ×2 (08:45→08:55)
[2023-08-13] MEDS: 0.9 % SODIUM CHLORIDE 50 ML VIAL IV (09:08)
[2023-08-13] MEDS: IOPAMIDOL-370 (76%);100ML BOTTLE 85 ML IV (09:08)
== END 2023-08-13 23:59 | disposition home or self-care (01) ==
PROVIDERS: PCP Physician Assistant; Visit Provider Internal Medicine
DX: Z01.810 Encounter for preprocedural cardiovascular examination (principal); R94.31 Abnormal electrocardiogram [ECG] [EKG]
CPT/HCPCS: 75571; 75574; 80048; Q9967

== ENCOUNTER 2023-08-26 07:35 | Day surgery (SDC) | payer BC, SELFPAY ==
[2023-08-25 10:53] VITALS: BMI 37.5
[2023-08-26] VITALS (9 sets, daily range): BP systolic 119–142; BP diastolic 71–84; PULSE 60–76; RESP 12–18; TEMP 36.1–36.3; O2SAT 97–100
[2023-08-26] MEDS: LACTATED RINGERS 1000ML 1,000 ML 100 ML IV (08:10)
[2023-08-26 08:21] LABS: Basophils # 0.1 K/mm3 (0-0.2); Basophils % 0.9 % (0.1-2.0); Eosinophils # 1.2 K/mm3 (0.0-0.4); Eosinophils % 7.9 % (0.1-12.0); Hematocrit 42.7 % (42.0-52.0); Hemoglobin 14.8 g/dL (14.1-18.0); Lymphocytes % 20.7 % (10-50); Mean Corpuscular HGB Conc 34.7 g/dL (31.8-35.4); Mean Corpuscular Hemoglobin 28.6 pg (27.0-31.2); Mean Corpuscular Volume 82.3 fl (80-94); Mean Platelet Volume 7.5 fl (7.4-10.4); Monocytes # 0.8 K/mm3 (0.1-1.0); Monocytes % 5.5 % (1.7-9.3); Neutrophils # 9.5 K/mm3 (1.8-7.8); Platelet Count 317 K/mm3 (142-424); Red Blood Count 5.19 M/mm3 (4.60-6.20); Red Cell Distribution Width 13.6 % (11.5-17.5); White Blood Count 14.6 K/mm3 (4.8-10.8)
--- NOTE | 2023-08-26 08:35 | PC.NURSE ---
DR. STEWART MADE AWARE OF HIGH WBC COUNT AND IS OKAY TO GO. BMP RESULTS ARE NOT BACK YET AND MD IS OK TO GO WITHOUT RESULTS. OR NURSE, Chriss COBURN, AWARE.
[2023-08-26] MEDS: BUPIVACAINE 0.5% W/EPI 1:200,000 30ML VIAL 30 ML IJ (08:58)
[2023-08-26 09:00] LABS: Alanine Aminotransferase 36 U/L (12-78); Albumin/Globulin Ratio 1.4 (1.1-1.8); Alkaline Phosphatase 84 U/L (38-126); Anion Gap 9.6 mEq/L (5-15); Aspartate Amino Transferase 35 U/L (17-59); Bilirubin,Total 0.3 mg/dl (0.2-1.3); Blood Urea Nitrogen 14 mg/dl (9-20); Calcium 8.9 mg/dl (8.4-10.2); Carbon Dioxide 30 mmol/L (22.0-30.0); Chloride 104 mmol/L (98-107); Creatinine Clearance Estimated 217 mL/min (50-200); Estimated Glomerular Filt Rate 118 ml/min (>60); GFR (African American) 143 ML/MIN (>60); Globulin 2.9 g/dL (1.3-3.2); Glucose 88 mg/dl (74-100); Potassium 3.6 mmoL/L (3.5-5.1); Sodium 140 mmol/L (136-145); Total Protein,Serum 6.9 g/dl (6.3-8.2)
--- NOTE | 2023-08-26 09:30 | P.OP_ITS ---
Date of procedure: 08/26/23 Pre-op Diagnosis:: Chronic tonsillitis, tonsillar hypertrophy Post-op Diagnosis:: Chronic tonsillitis, tonsillar hypertrophy Procedure performed:: Tonsillectomy Surgeon:: Moise Montalvo MD WINDOW SHADE CUTTER AND MOUNTER:: Francisco Dean Anesthesia: GETA Estimated blood loss (mL): 10 Operative findings:: 3+ enlarged cryptic tonsils bilaterally Operative note:: Patient was brought to the operating room and after adequate general anesthesia the mouth was draped in the usual sterile fashion and a mouthgag placed. Was then performed in the plane defined by the tonsil capsule and superior constrictor muscle and this was done with electrocautery to simultaneously dissected and cauterized. This was done bilaterally and then tonsillar fossa's infiltrated with half percent Marcaine with epinephrine and the procedure concluded. All counts correct and blood loss was minimal Condition: stable Disposition: PACU Complications:: No complications
--- NOTE | 2023-08-26 09:33 | P.PNANES_ITS ---
[facility] Disclaimer: The information contained in this section may have been updated after the patient was seen, as this information can be updated by other users. Medical History Enlarged tonsils Surgical History History of appendectomy Family History Other No significant past medical history Social History (Updated 08/26/23 @ 08:02 by Chelsea Owens RN) Smoking Status: Former smoker alcohol intake: never substance use type: denies use current occupational status: employed Travel in the last 8 weeks: None [facility] Anesthesia Checklist Patient Identification Patient Identification: Verbal (Name & ) Structural Data Admitted From: Home Planned Operative Procedure/s: tonsillectomy Consent for Planned Operative Procedure(s) Verified: Yes NPO Status Verified Time NPO: 00:00 Additional verifications Anesthesia Reactions: No Hx Blood Transfusions: No Blood Transfusion Reaction: No Airway Assessment Mallampati Score:: Class II C-Spine Mobility Assessed: Yes TMJ Mobility Assessed: Yes Dentition: Poor Dentition Neurological Assessment Level of Consciousness: Awake, Alert and Appropriate Anesthesia Plan Anesthesia Risk discussed: Yes Anesthesia Plan: Verified ASA Class: II Anesthesia Type: General
--- NOTE | 2023-08-26 09:34 | P.PNANES_ITS ---
[facility] Anesthesia Record Part I Anesthesia Record I Intake, IV Amount: 1,200 Hydration: Adequate Estimated blood loss (mL): 50 Urine output (mL): 0 Blood Pressure: 130/81 SaO2: 99 Pulse Rate: 71 Airway Patency: Patent Respiratory Rate: 12 Temperature: 97 F Patient is:: Awake and Stable Stable to PACU at:: 09:30
[2023-08-26] MEDS: ONDANSETRON 4MG/2ML VIAL 4 MG IV (09:41)
[2023-08-26] MEDS: MORPHINE 2MG/ML SYRINGE 2 MG IV (09:41)
--- NOTE | 2023-08-28 08:57 | EXP.ANES.II ---
[facility] Anesthesia Record Part II Anesthesia Record Part II Discharge Time: 10:00 Destination: Surgical Day Care (OP Surgery) PACU nurse assessment reviewed?: Yes Patient Condition:: Good Anesthesia Complications:: None Swallowing reflex intact?: Yes Airway Patency: Patent Cyanosis?: No Blood Pressure: 140/84 SaO2: 97 Respiratory Rate: 15 Pulse Rate: 64 Temperature: 97.2 F Mental Status: Alert & Oriented Pain level:: 5 Nausea and/or vomitting:: None Intake, IV Amount: 0 Hydration: Adequate
[2023-08-28 08:58] VITALS: BP 140/84; PULSE 64; RESP 15; TEMP 36.2; O2SAT 97
== END 2023-08-26 10:31 | disposition home or self-care (01) ==
PROVIDERS: PCP Physician Assistant; Visit Provider Otolaryngology
PROC: (CPT 42826; principal; 2023-08-26 09:00)
DX: J35.01 Chronic tonsillitis (principal)
CPT/HCPCS: 42826; 80053; 85025; J3490; J2405; J2710

== ENCOUNTER 2023-09-01 07:55 | Emergency (ER) | payer BC, SELFPAY ==
[2023-09-01 07:57] VITALS: BP 137/81; PULSE 76; RESP 16; TEMP 36.6; O2SAT 99; BMI 38.3
[2023-09-01 08:03] VITALS: PULSE 72; O2SAT 99
--- NOTE | 2023-09-01 08:06 | PC.NURSE ---
call made to ENT office for consult about patient. When WAREHOUSE INCENTIVE SELECTOR gets in office she will call back.
--- NOTE | 2023-09-01 08:09 | HMH.EDGENADL ---
Discharge Plan Disposition Patient Disposition: Home, Self-Care Condition: Good Prescriptions Prescriptions: New oxycodone-acetaminophen [Percocet] 7.5-325 mg tablet 1 tab PO Q6 PRN (Reason: pain) 3 Days Qty: 12 0RF No Action Zepbound 2.5 mg/0.5 mL pen injector 2.5 mg SQ WEEKLY Patient Comments: ADMINISTER 2.5 MG UNDER THE SKIN 1 TIME A WEEK hydrocodone-acetaminophen 7.5-325 mg/15 mL solution 15 ml PO Q6H PRN (Reason: pain) Qty: 400 0RF ondansetron 4 mg tablet,disintegrating 4 mg PO Q6H PRN (Reason: nausea and vomiting) Qty: 20 0RF prednisone 5 mg tablet 5 mg PO DAILY 5 Days Qty: 5 0RF hydrocodone-acetaminophen 7.5-325 mg tablet 1 tab PO Q6H PRN (Reason: pain) 10 Days Qty: 30 0RF Referrals Follow up/Referrals: Karla Thompson PA [Primary Care Provider] - See instructions Activity Restrictions/Add. Instructions Additional Instructions/Restrictions: You have been evaluated in the ED for your complaints. You may follow-up with your PCP in the next 3 to 5 days. Please return to ED for any new or worsening symptoms. I have written prescriptions for Percocet 7.5 to take to further assist with your pain. I do recommend manage milligrams of ibuprofen as well as 1000 mg of Tylenol as needed. Please keep your follow-up appointment with ENT as discussed. Clinical Impressions Clinical Impression: Post-operative pain, Status post tonsillectomy Discharge ED Provider: Noman Gibson General Adult HPI General Chief complaint: Recheck/Abnormal Lab/Rx Stated complaint: tonsils out 08/26 swollen and cant drink Time Seen by Provider: 09/01/23 07:58 History of Present Illness HPI narrative: 23-year-old male with past medical history significant for tonsillar hypertrophy and repeated strep pharyngitis s/p tonsillectomy on 08/26/2023, presents today for evaluation concerning sore throat and difficulty swallowing secondary to pain. Also notes a mild sensation of tongue swelling. He denies having any fevers, chills, chest pain, shortness of breath, cough or congestion. States that he has been taking [place] 7.5 with acetaminophen with minimal relief. Has also taken 500 mg of Tylenol as well as 400 mg ibuprofen this morning. He denies any other associated symptoms at this time. Related Data Home Medications Medication Instructions Recorded Confirmed tirzepatide (weight loss) 2.5 2.5 mg SQ WEEKLY 07/16/23 08/26/23 mg/0.5 mL subcutaneous pen injector (Zepbound) Previous Rx's Medication Instructions Recorded hydrocodone 7.5 mg-acetaminophen 1 tab PO Q6H PRN pain 10 days #30 08/26/23 325 mg tablet tabs hydrocodone 7.5 mg-acetaminophen 15 ml PO Q6H PRN pain #400 mL 08/26/23 325 mg/15 mL oral solution ondansetron 4 mg disintegrating 4 mg PO Q6H PRN nausea and 08/26/23 tablet vomiting #20 tabs prednisone 5 mg tablet 5 mg PO DAILY 5 days #5 tabs 08/26/23 oxycodone-acetaminophen 7.5 mg-325 1 tab PO Q6 PRN pain 3 days #12 09/01/23 mg tablet (Percocet) tabs Allergies Allergy/AdvReac Type Severity Reaction Status Date / Time Penicillins Allergy Verified 08/26/23 08:00 [facility] Disclaimer: The information contained in this section may have been updated after the patient was seen, as this information can be updated by other users. Medical History Enlarged tonsils Surgical History History of appendectomy Family History Other No significant past medical history Social History (Updated 08/26/23 @ 09:34 by Francisco Dean CRNA) Smoking Status: Never smoker alcohol intake: never substance use type: denies use current occupational status: employed Travel in the last 8 weeks: None ROS Obtained: Yes All systems reviewed & no additional complaints except as documented Physical Exam General General appearance: alert and in no apparent distress Head Head exam: atraumatic and normocephalic Eye Eye exam: Present normal appearance, PERRL and EOMI ENT ENT exam: Present normal oropharynx and mucous membranes moist Expanded ENT Exam Mouth exam: Present tongue normal Throat exam: Present other (Post tonsillectomy changes noted with eschar in place. There is a very small area of dried blood near the left tonsil excision site. No cervical lymphadenopathy. Floor the mouth is soft.) Neck Neck exam: Present full ROM; Absent meningismus Respiratory Respiratory exam: Absent respiratory distress, wheezes, stridor or accessory muscle use Cardiovascular Cardiovascular exam: Present normal rhythm Abdominal Exam Abdominal exam: Present soft; Absent distention, tenderness, guarding, rebound or rigidity Neurological Exam Neurological exam: Present alert, oriented X3 and CN II-XII intact; Absent motor sensory deficit Psychiatric Psychiatric exam: Present normal affect and normal mood Skin Skin exam: Present warm and dry Medical Decision Making Medical Records Medical records reviewed: Yes I reviewed the patient's medical records. Lev Inquiry Pt receiving controlled substance: No Lev was queried for this patient: No Vital Signs: 09/01/23 07:57 09/01/23 08:03 09/01/23 08:49 Temperature 97.9 F Temperature Source Oral Pulse Rate 72 71 Pulse Rate [Left Radial] 76 Respiratory Rate 16 Blood Pressure 126/77 Blood Pressure [Right Arm] 137/81 Blood Pressure Mean 93 Blood Pressure Mean [Right Arm] 99 Blood Pressure Source 02 Sat by Pulse Oximetry 99 99 99 Oxygen Delivery Method Room Air Room Air 09/01/23 09:25 Temperature 97.9 F Temperature Source Oral Pulse Rate 71 Pulse Rate [Left Radial] Respiratory Rate 18 Blood Pressure 122/86 Blood Pressure [Right Arm] Blood Pressure Mean Blood Pressure Mean [Right Arm] Blood Pressure Source Automatic Cuff 02 Sat by Pulse Oximetry Oxygen Delivery Method Room Air Orders (Tests/Meds): ED MEDICATIONS Discontinued Medications Generic Name Dose Route Start Last Admin Trade Name Facundo PRN Reason Stop Dose Admin Acetaminophen 500 mg 09/01/23 08:08 09/01/23 08:16 Acetaminophen 500mg Tab PO 09/01/23 08:09 500 mg ONCE ONE Administration Hydrocodone Bitart/Acetaminophen 1 tab 09/01/23 08:08 09/01/23 08:16 Apap/Hydrocodone 325mg/7.5mg Tab PO 09/01/23 08:09 1 tab ONCE ONE Administration Dexamethasone Sodium Phosphate 10 mg 09/01/23 08:34 09/01/23 08:46 Dexamethasone 4mg/Ml 1ml Vial IM 09/01/23 08:35 10 mg ONCE ONE Administration Ibuprofen 400 mg 09/01/23 08:08 09/01/23 08:16 Ibuprofen 400 Mg Tablet PO 09/01/23 08:09 400 mg ONCE ONE Administration Tetracycl/Hydrocort/Nystatin/Diphen 15 ml 09/01/23 08:08 09/01/23 08:33 Magic Mouthwash 300ml Bottle PO 09/01/23 08:09 15 ml ONCE ONE Administration Medical Decision Narrative: 23-year-old male with past medical history significant for tonsillar hypertrophy and repeated strep pharyngitis s/p tonsillectomy on 08/26/2023, presents today for evaluation concerning sore throat and difficulty swallowing secondary to pain. Also notes a mild sensation of tongue swelling. Has been taking [place] 7.5, 400 mg ibuprofen, 500 mg of Tylenol with minimal relief. On assessment, the patient is clinically stable in no acute distress. Afebrile. Oropharynx was with post tonsillectomy changes with eschar in place. There was a small area of dried blood near left tonsil excision site. No cervical lymphadenopathy. Floor the mouth is soft. He is able to turn his neck in all directions without difficulty. Otherwise exam vitals unremarkable. Differential diagnoses include but limited to postoperative pain, postoperative bleeding, infection of the low suspicion, among others. Patient was provided with [place] 7.5, ibuprofen, Tylenol and Magic mouthwash to assist with his symptoms. I also spoke with ENT and discussed management and they have noted that they will come down to the ED to evaluate. ENT has evaluated the patient and have recommended 10 mg of IM Decadron at this time which I have ordered. They have also recommended that I give patient Percocet for pain meds at home. Patient hermann medically stable in no acute distress on reassessment. He states that his symptoms are improved at this time. I discussed his ED workup and current plan. He will keep his follow-up appoint with ENT toward the end of the month as scheduled. Provided with strict return ED precautions. Subsequently discharged home in medically stable and in no acute distress. Critical Care Critical Care Time Critical Care Time: No
--- NOTE | 2023-09-01 08:11 | PC.NURSE ---
MD on phone with ENT [employer] FAMILY MEMBER
[2023-09-01] MEDS: IBUPROFEN 400 MG TABLET PO (08:16)
[2023-09-01] MEDS: ACETAMINOPHEN 500MG TAB 500 MG PO (08:16)
[2023-09-01] MEDS: APAP/HYDROCODONE 325MG/7.5MG TAB 1 TAB PO (08:16)
[2023-09-01] MEDS: MAGIC MOUTHWASH 300ML BOTTLE 15 ML PO (08:33)
--- NOTE | 2023-09-01 08:43 | P.CONS_ITS ---
History of Present Illness *Admission Date: 09/01/23 *Reason for visit:: Cannot swallow *History of present illness: I was asked see this young man who is 6 days status post tonsillectomy for dysphagia, odynophagia and uvular swelling. He noted over the last 24 hours he has had more difficulty swallowing due to pain and swelling. He is breathing well and not having issues with coughing. He also notes that the Jacob 7.5 mg are not strong enough to get him through the discomfort. He denies any other symptoms at this time other than unable to swallow solid foods. He is taking liquids well. Exam: Patient voice is normal, his mild uvular edema, both tonsillar fossa appear healthy with white eschar, no active bleeding noted. His external auditory canals and tympanic membrane's appear healthy. Neck exam reveals no adenopathy or significant edema. [facility] Disclaimer: The information contained in this section may have been updated after the patient was seen, as this information can be updated by other users. Medical History Enlarged tonsils Surgical History History of appendectomy Family History Other No significant past medical history Social History (Updated 08/26/23 @ 09:34 by Francisco Dean CRNA) Smoking Status: Never smoker alcohol intake: never substance use type: denies use current occupational status: employed Travel in the last 8 weeks: None Meds Home Medications and Allergies Home Medications Medication Instructions Recorded Confirmed Type tirzepatide (weight loss) 2.5 2.5 mg SQ WEEKLY 07/16/23 08/26/23 History mg/0.5 mL subcutaneous pen injector (Zepbound) hydrocodone 7.5 mg-acetaminophen 1 tab PO Q6H PRN pain 10 days #30 08/26/23 08/26/23 Rx 325 mg tablet tabs hydrocodone 7.5 mg-acetaminophen 15 ml PO Q6H PRN pain #400 mL 08/26/23 Rx 325 mg/15 mL oral solution ondansetron 4 mg disintegrating 4 mg PO Q6H PRN nausea and 08/26/23 Rx tablet vomiting #20 tabs prednisone 5 mg tablet 5 mg PO DAILY 5 days #5 tabs 08/26/23 Rx New Prescriptions to Start Prescriptions: Allergies Allergy/AdvReac Type Severity Reaction Status Date / Time Penicillins Allergy Verified 08/26/23 08:00 Results Labs Labs: All other labs normal. Assessment and Plan *Assessment and plan (1) Uvular edema: Status: Acute Category: Medical Code(s): K13.79 - Other lesions of oral mucosa (2) Dysphagia: Status: Acute Qualifiers: Dysphagia type: pharyngeal phase Qualified Code(s): R13.13 - Dysphagia, pharyngeal phase Category: Medical Code(s): R13.10 - Dysphagia, unspecified (3) Status post tonsillectomy: Status: Acute Category: Surgical Code(s): Z90.89 - Acquired absence of other organs Plan I would like to switch his pain medication to oxycodone 7.5 mg / 325 mg acetaminophen to 1 p.o. every 4 hours as needed pain dispense #12 I asked if he could get a injection of Decadron 10 mg IM today Asked him to continue pushing fluids Keep follow-up appointment as scheduled.
[2023-09-01] MEDS: DEXAMETHASONE 4MG/ML 1ML VIAL 10 MG IM (08:46)
[2023-09-01 08:49] VITALS: BP 126/77; PULSE 71; O2SAT 99
[2023-09-01 09:25] VITALS: BP 122/86; PULSE 71; RESP 18; TEMP 36.6; O2SAT 100
== END 2023-09-01 09:27 | disposition home or self-care (01) ==
PROVIDERS: Emergency Provider Student in an Organized Health Care Education/Training Program; PCP Physician Assistant
DX: K13.79 Other lesions of oral mucosa (principal); R13.13 Dysphagia, pharyngeal phase; Z90.89 Acquired absence of other organs; G89.18 Other acute postprocedural pain
CPT/HCPCS: 96372; 99283

== ENCOUNTER 2024-02-11 09:48 | Outpatient (CLI) | payer BC, SELFPAY ==
[2024-02-11 09:56] LABS: Adenovirus,PCR Not Detected (NotDetected); Bordetella Pertussis Not Detected (NotDetected); Chlamydophila Pneumoniae, PCR Not Detected (NotDetected); Coronavirus 19, PCR Not Detected (NotDetected); Coronavirus 229E Not Detected (NotDetected); Coronavirus NL63 Not Detected (NotDetected); Coronavirus OC43 Not Detected (NotDetected); Coronovirus HKU1,PCR Not Detected (NotDetected); Human Metapneumovirus Not Detected (NotDetected); Influenza A, PCR Not Detected (NotDetected); Influenza AH1, 2009 Not Detected (NotDetected); Influenza AH1, PCR Not Detected (NotDetected); Influenza AH3,PCR Not Detected (NotDetected); Influenza B, PCR Not Detected (NotDetected); Mycoplasma Pneumoniae, PCR Not Detected (NotDetected); Parainfluenza 1, PCR Not Detected (NotDetected); Parainfluenza 2, PCR Not Detected (NotDetected); Parainfluenza 3, PCR Not Detected (NotDetected); Parainfluenza 4, PCR Not Detected (NotDetected); Respiratory Syncytial Virus Not Detected (NotDetected); Rhinovirus/Enterovirus Not Detected (NotDetected)
== END 2024-02-11 23:59 | disposition home or self-care (01) ==
LOC: LAB 09:49
PROVIDERS: PCP Physician Assistant; Visit Provider Physician Assistant
DX: J02.8 Acute pharyngitis due to other specified organisms (principal); R51.9 Headache, unspecified
CPT/HCPCS: 87070; 87581; 87632; 87635; 87798

== ENCOUNTER 2024-04-11 19:04 | Emergency (ER) | payer BC, SELFPAY ==
[2024-04-11 19:23] VITALS: BP 135/71; PULSE 100; RESP 18; TEMP 36.7; O2SAT 100; BMI 37.5
[2024-04-11 19:32] LABS: UTC Strep Screen (Rapid) Negative (Negative)
[2024-04-11 19:34] LABS: Coronavirus 19, PCR Not Detected (NotDetected); Influenza A, PCR Not Detected (NotDetected); Influenza B, PCR Not Detected (NotDetected)
--- NOTE | 2024-04-11 19:36 | EXP.UTC ---
Discharge Plan Disposition Patient Disposition: Home, Self-Care Condition: Good Prescriptions Prescriptions: New azithromycin [Zithromax] 250 mg tablet 250 mg PO UD DOSE PK Qty: 6 0RF Rx Instructions: Take two (2) tablets today, then one (1) tablet days #2 thru #5 [id number] [Bromfed DM] 2-30-10 mg/5 mL Syrup 5 ml PO Q6H PRN (Reason: Cough) Qty: 240 0RF Referrals Follow up/Referrals: Karla Thompson PA [Primary Care Provider] - See instructions Activity Restrictions/Add. Instructions Additional Instructions/Restrictions: Drink plenty of fluids. Take tylenol or ibuprofen for pain or fever. Take the medications as directed. Follow up with your regular doctor. GO TO THE ER FOR ANY WORSENING SYMPTOMS Clinical Impressions Clinical Impression: Pharyngitis, Otitis media, Acute viral syndrome Stand Alone Forms Stand Alone Forms: Work/School Release Instructions Patient Instructions: DI for Pharyngitis/Tonsillopharyngitis -- Adult Print Language Print Language: Bahamian Discharge ED Provider: Fortino Umana [facility] General Stated complaint: sore throat, weak, sneezing, headache Mode of Arrival: Ambulatory Source of Information: Patient Limitations: No Limitations Time Seen by Provider: 04/11/24 19:36 Description of Symptoms (Recalled from Triage Doc. by RN): Complaint of sore throat and being tired since Friday. HEENT Symptoms (Recalled from RN notes): Yes Resp Symptoms (Recalled from RN notes): No Skin Symptoms (Recalled from RN notes): No MS Symptoms (Recalled from RN notes): No Functional Status (Recalled from RN notes): wnl Related Data Previous Rx's ?Medication ?Instructions ?Recorded azithromycin 250 mg tablet 250 mg PO UD DOSE PK #6 tabs 04/11/24 (Zithromax) [id number] 5 ml PO Q6H PRN Cough #240 mL 04/11/24 2 mg-30 mg-10 mg/5 mL oral syrup (Bromfed DM) Allergies Allergy/AdvReac Type Severity Reaction Status Date / Time Penicillins Allergy Verified 09/09/23 13:07 Worker's Comp Is this a Worker's Comp case?: No [facility] Disclaimer: The information contained in this section may have been updated after the patient was seen, as this information can be updated by other users. Medical History Enlarged tonsils Surgical History History of appendectomy Family History Other No significant past medical history Social History Smoking Status: Never smoker alcohol intake: never substance use type: denies use current occupational status: employed Travel in the last 8 weeks: None ROS Obtained: Yes All systems reviewed & no additional complaints except as documented Constitutional Constitutional: Reports chills and Reports fever(s) Eyes Eyes: Denies eye discharge ENT Ears, Nose, Mouth, and Throat: Reports as per HPI Cardiovascular Cardiovascular: Denies chest pain Respiratory Respiratory: Denies chest congestion and Reports cough Gastrointestinal Gastrointestingal: Reports nausea; Denies abdominal pain, constipation, cramping, diarrhea or vomiting Musculoskeletal Musculoskeletal: Denies arthralgias Integumentary/Breasts Skin/Breast: Denies rash Neurologic Neurologic: Denies paresthesias Physical Exam General General appearance: alert and in no apparent distress Head Head exam: atraumatic, normocephalic and normal inspection Eye Eye exam: Present normal appearance, PERRL and EOMI ENT ENT exam: Present mucous membranes moist and normal external ear exam Expanded ENT Exam TM/Canal exam: Bilateral TM: erythema and bulging Nose exam: Absent sinus tenderness Mouth exam: Present normal external inspection; Absent drooling Teeth exam: Present normal inspection Throat exam: Present tonsillar erythema, tonsillomegaly and tonsillar exudate Neck Neck exam: Present normal inspection, full ROM and trachea midline; Absent tenderness, meningismus or lymphadenopathy Chest Chest inspection: Present normal inspection and symmetric chest wall rise; Absent tenderness Respiratory Respiratory exam: Present normal lung sounds bilaterally, respiratory distress, wheezes, stridor and accessory muscle use Cardiovascular Cardiovascular exam: Present regular rate and normal rhythm; Absent systolic murmur or diastolic murmur Abdominal Exam Abdominal exam: Present soft and normal bowel sounds; Absent distention, tenderness, guarding, rebound or rigidity Extremities Exam Extremities exam: Present normal inspection and normal capillary refill; Absent calf tenderness Back Exam Back exam: Present normal inspection and full ROM; Absent tenderness, CVA tenderness (R) or CVA tenderness (L) Neurological Exam Neurological exam: Present alert, oriented X3 and CN II-XII intact Psychiatric Psychiatric exam: Present normal affect and normal mood Skin Skin exam: Present warm, dry, intact and normal color Medical Decision Making Medical Records Medical records reviewed: No I reviewed the patient's medical records. Screening: Per USPSTF and CDC recommendations, given the prevalence of disease in our region, it is our hospital?s policy to screen for HIV and viral Hepatitis for all patients aged 18 and over and those with ongoing risk factors. Lev Inquiry Pt receiving controlled substance: No Vital Signs: 04/11/24 19:23 Temperature 98.0 F Temperature Source Temporal Artery Scan Pulse Rate [Radial] 100 H Respiratory Rate 18 Blood Pressure [Right Arm] 135/71 Blood Pressure Mean [Right Arm] 92 Blood Pressure Source [Right Arm] Automatic Cuff Blood Pressure Position [Right Arm] Sitting 02 Sat by Pulse Oximetry 100 Oxygen Delivery Method Room Air Lab Data Lab results reviewed: Yes I reviewed the patient's lab results. Lab Results 04/11/24 19:25: Strep Scn Rapid Clinic Negative Orders (Tests/Meds): ORDERS Category Date Time Status Rapid PCR Covid and Flu A/B Stat Lab 04/11/24 19:22 Received Strep Screen Confirmation Stat Micro 04/11/24 19:25 Received
[2024-04-11 19:54] VITALS: BP 135/71; PULSE 100; RESP 18; TEMP 36.7; O2SAT 100
== END 2024-04-11 19:55 | disposition home or self-care (01) ==
PROVIDERS: Emergency Provider Nurse Practitioner Family; PCP Physician Assistant
DX: H66.93 Otitis media, unspecified, bilateral (principal); J02.9 Acute pharyngitis, unspecified; R51.9 Headache, unspecified; B34.9 Viral infection, unspecified
CPT/HCPCS: 87636; 87880; 99212; 99214; G0463

== ENCOUNTER 2024-07-16 23:55 | Emergency (ER) | payer BC, SELFPAY ==
[2024-07-16 23:57] VITALS: BP 137/78; PULSE 109; RESP 15; TEMP 36.6; O2SAT 98; BMI 37.5
[2024-07-17] MEDS: ACETAMINOPHEN 500MG TAB 1000 MG PO (00:11)
[2024-07-17] MEDS: ONDANSETRON 4MG ODT 4 MG SL (00:12)
[2024-07-17] MEDS: IBUPROFEN 600 MG TABLET PO (00:12)
[2024-07-17 00:42] VITALS: BP 111/61; PULSE 85; RESP 18; TEMP 36.6; O2SAT 96
--- NOTE | 2024-07-17 00:43 | ED_ITS ---
Discharge Plan Disposition Patient Disposition: Home, Self-Care Condition: Good Prescriptions Prescriptions: New ondansetron 4 mg tablet,disintegrating 4 mg PO Q6H PRN (Reason: nausea and vomiting) Qty: 10 0RF No Action azithromycin [Zithromax] 250 mg tablet 250 mg PO UD DOSE PK Qty: 6 0RF Rx Instructions: Take two (2) tablets today, then one (1) tablet days #2 thru #5 [id number]-[id number] [Bromfed DM] 2-30-10 mg/5 mL Syrup 5 ml PO Q6H PRN (Reason: Cough) Qty: 240 0RF Referrals Follow up/Referrals: Provider,Referral, MD [Primary Care Provider] - See instructions Activity Restrictions/Add. Instructions Additional Instructions/Restrictions: You were evaluated in the ER and appropriate for discharge at this time. Take the prescribed ondansetron if needed for nausea and vomiting. Take Tylenol, ibuprofen if needed for pain. Drink plenty of water and other fluids. Make an appointment with your primary care doctor for reevaluation. Return to the ER with new, worsening, or otherwise concerning symptoms. Clinical Impressions Clinical Impression: Nausea Instructions Patient Instructions: DI for Diarrhea and Traveler's Diarrhea -- Adult, DI for Diarrhea and Traveler's Diarrhea -- Child, DI for Nausea -- Adult, DI for Nausea -- Child Print Language Print Language: Setswana Discharge ED Provider: Oli Antonio Adult HPI General Chief complaint: Nausea/Vomiting/Diarrhea Stated complaint: abd pain, vomiting Time Seen by Provider: 07/17/24 00:12 Mode of Arrival: Ambulatory Source of Information: Patient Limitations: No Limitations Description of Symptoms (Recalled from ER Triage Doc. by RN): Patient ambulatory to ED with complaints of n/v with generalized body aches that started approx 2200. Patient reports that it just came on all of sudden, and I feel terrible. Patient afebrile upon assessment, and denies any sick contacts recently. History of Present Illness HPI narrative: Otherwise healthy 24-year-old male with history of appendectomy presents to the ER with nausea, vomiting, generalized bodyaches starting approximately 1 to 2 hours prior to arrival. States symptoms all started at the same time. He has had nonbloody, nonbilious emesis. He has not yet had diarrhea but feels diffuse abdominal cramping. He has no dysuria or hematuria. He had has no known sick contacts. He has not taken any medications for his symptoms prior to arrival. Patient does report history of stomach problems and possible ulcer but is not currently on any medications for these issues. ROS otherwise negative. Related Data Previous Rx's ?Medication ?Instructions ?Recorded azithromycin 250 mg tablet 250 mg PO UD DOSE PK #6 tabs 04/11/24 (Zithromax) [id number]-besocogendbqwhy-QR 5 ml PO Q6H PRN Cough #240 mL 04/11/24 2 mg-30 mg-10 mg/5 mL oral syrup (Bromfed DM) ondansetron 4 mg disintegrating 4 mg PO Q6H PRN nausea and 07/17/24 tablet vomiting #10 tabs Allergies Allergy/AdvReac Type Severity Reaction Status Date / Time Penicillins Allergy Verified 09/09/23 13:07 [facility] Disclaimer: The information contained in this section may have been updated after the patient was seen, as this information can be updated by other users. Medical History Enlarged tonsils Surgical History History of appendectomy Family History Other No significant past medical history Social History Smoking Status: Never smoker alcohol intake: never substance use type: denies use current occupational status: employed Travel in the last 8 weeks: None Have you lived/traveled outside [place] in past 30 days?: No Contact w/someone who lives/traveled outside [place] past 30 days?: No Exposure to someone with infectious disease in past 14 days?: No Do you have a fever (greater than 100.4 F or 38 C)?: No Have you tested positive for COVID-19: No Exposed to someone with COVID-19 in past 14 days?: No Do you have a sore throat?: No Do you have a cough?: No Do you have any weakness?: No Do you have any diarrhea?: No Are you experiencing any unusual bleeding?: No Do you have any muscle aches/pain?: No Do you have any abdominal pain?: Yes Are you experiencing loss of taste or smell?: No Other Medical History Have you received the Flu Vaccine for this season: No Have you received the Pneumonia Vaccine: No ROS Obtained: Yes Systems reviewed as appropriate & no additional complaints except as documented Per HPI Physical Exam General General appearance: alert and in no apparent distress Head Head exam: atraumatic and normocephalic Eye Eye exam: Present PERRL and EOMI ENT ENT exam: Present mucous membranes moist Neck Neck exam: Present normal inspection and full ROM Chest Chest inspection: Present symmetric chest wall rise Respiratory Respiratory exam: Present normal lung sounds bilaterally; Absent respiratory distress, wheezes or stridor Cardiovascular Cardiovascular exam: Present normal rhythm and tachycardia (Slight tachycardia, heart rate 100-1 05 on exam) Abdominal Exam Abdominal exam: Present soft and tenderness (Diffuse mild tenderness to deep palpation, no localizing pain); Absent distention, guarding, rebound or rigidity Extremities Exam Extremities exam: Present full ROM Neurological Exam Neurological exam: Present alert and oriented X3; Absent motor sensory deficit Psychiatric Psychiatric exam: Present normal affect and normal mood Skin Skin exam: Present warm and dry Medical Decision Making Medical Records Medical records reviewed: Yes I reviewed the patient's medical records. Screening: Per USPSTF and CDC recommendations, given the prevalence of disease in our region, it is our hospital?s policy to screen for HIV and viral Hepatitis for all patients aged 18 and over and those with ongoing risk factors. MR Comment: Patient was evaluated at [facility] in March and diagnosed with a viral syndrome, treated with azithromycin and Bromfed. Negative strep screen. Lev Inquiry Pt receiving controlled substance: No Vital Signs: 07/16/24 23:57 07/17/24 00:42 Temperature 97.8 F 97.9 F Temperature Source Oral Oral Pulse Rate 85 Pulse Rate [Right] 109 H Respiratory Rate 15 18 Blood Pressure 111/61 Blood Pressure [Right Arm] 137/78 Blood Pressure Mean [Right Arm] 97 Blood Pressure Source Automatic Cuff Blood Pressure Source [Right Arm] Automatic Cuff Blood Pressure Position Supine Blood Pressure Position [Right Arm] Supine 02 Sat by Pulse Oximetry 98 Oxygen Delivery Method Room Air Room Air Orders (Tests/Meds): ED MEDICATIONS Discontinued Medications Generic Name Dose Route Start Last Admin Trade Name Freq PRN Reason Stop Dose Admin Acetaminophen 1,000 mg 07/17/24 00:08 07/17/24 00:11 Acetaminophen 500mg Tab PO 07/17/24 00:09 1,000 mg ONCE ONE Administration Ibuprofen 600 mg 07/17/24 00:08 07/17/24 00:12 Ibuprofen 600 Mg Tablet PO 07/17/24 00:09 600 mg ONCE ONE Administration Ondansetron HCl 4 mg 07/17/24 00:08 07/17/24 00:12 Ondansetron 4mg Odt SL 07/17/24 00:09 4 mg ONCE ONE Administration Medical Decision Narrative: In summary, this otherwise healthy 24-year-old male with history of appendectomy presents to the emergency department today with abdominal pain, nausea, vomiting. On initial evaluation patient is hemodynamically stable with only mild tachycardia on arrival, nontoxic-appearing, afebrile, he has mild diffuse tenderness to deep palpation throughout the abdomen but he has a very nonacute abdomen and reassuring exam overall. He does not have any localizing pain or peritonitic findings. Remainder of exam benign. Differential diagnosis includes but is not limited to viral syndrome, I had considered acute intra-abdominal pathology such as appendicitis but patient has already had appendectomy, considered biliary pathology but he has no localizing right upper quadrant pain, consider the possibility of mesenteric adenitis, colitis, however with patient's acute onset of symptoms with overall very reassuring exam, I have extremely low suspicion for any dangerous intra-abdominal pathology at this time. I do not believe he requires any labs or imaging. He will be treated conservatively with oral Zofran, Tylenol, ibuprofen initially. On reevaluation patient has had improvement of symptoms, he is tolerating oral intake. He is appropriate for discharge at this time. I prescribed ondansetron for outpatient management. Patient was given instructions on symptomatic management, follow up instructions, and return precautions for the emergency department. Patient indicated understanding and was discharged in stable condition. Critical Care Critical Care Time Critical Care Time: No
== END 2024-07-17 00:46 | disposition home or self-care (01) ==
PROVIDERS: Emergency Provider Emergency Medicine
DX: R11.2 Nausea with vomiting, unspecified (principal); M79.10 Myalgia, unspecified site
CPT/HCPCS: 99283; Q0162

== ENCOUNTER 2024-10-31 19:33 | Emergency (ER) | payer BC, SELFPAY ==
[2024-10-31 19:46] VITALS: BP 150/94; PULSE 99; RESP 14; TEMP 36.4; O2SAT 100; BMI 37.4
[2024-10-31 19:49] LABS: Microscopic, Urine URINE MICROSCOPIC (MICROSCOPIC)
[2024-10-31 19:51] LABS: Basophils # 0.1 K/mm3 (0-0.2); Basophils % 0.8 % (0.1-2.0); Eosinophils # 0.1 K/mm3 (0.0-0.4); Eosinophils % 1.7 % (0.1-12.0); Hematocrit 42.6 % (42.0-52.0); Hemoglobin 14.4 g/dL (14.1-18.0); Lymphocytes % 15.7 % (10-50); Mean Corpuscular HGB Conc 33.8 g/dL (31.8-35.4); Mean Corpuscular Hemoglobin 27.9 pg (27.0-31.2); Mean Corpuscular Volume 82.4 fl (80-94); Mean Platelet Volume 8.8 fl (7.4-10.4); Monocytes # 0.9 K/mm3 (0.1-1.0); Monocytes % 13.5 % (1.7-9.3); Neutrophils # 4.4 K/mm3 (1.8-7.8); Nucleated Red Blood Cells # 0 10^3/uL; Nucleated Red Blood Cells % 0 %; Platelet Count 284 K/mm3 (142-424); Red Blood Count 5.17 M/mm3 (4.60-6.20); Red Cell Distribution Width 13.2 % (11.5-17.5); Red Cell Distribution Width-SD 39.6 fL; White Blood Count 6.5 K/mm3 (4.8-10.8)
[2024-10-31 19:52] LABS: Appearance,Urine CLEAR (Clear); Bilirubin,Urine Negative (Negative); Blood, Urine Negative (Negative); Color,Urine YELLOW (Yellow); Glucose,Urine (UA) Negative (Negative); Ketones,Urine Negative (Negative); Leukocyte Esterase,Urine Negative (Negative); Nitrate,Urine Negative (Negative); Protein,Urine Negative (Negative); Specific Gravity, Urine >= 1.030 (1.005-1.030)
[2024-10-31 19:56] LABS: Albumin Level 4.1 g/dl (3.5-5.0); Chloride 103 mmol/L (98-107); Sodium 140 mmol/L (136-145)
[2024-10-31 19:57] LABS: Potassium 3.7 mmoL/L (3.5-5.1)
[2024-10-31] MEDS: ALUMINUM/MAGNESIUM/SIMETHICONE 30ML UDC 30 ML PO (19:58)
[2024-10-31] MEDS: FAMOTIDINE 20MG/2ML VIAL 20 MG IV (19:58)
[2024-10-31 19:59] LABS: Alanine Aminotransferase 33 U/L (12-78); Albumin/Globulin Ratio 1.3 (1.1-1.8); Alkaline Phosphatase 85 U/L (38-126); Anion Gap 12.7 mEq/L (5-15); Aspartate Amino Transferase 35 U/L (17-59); Bilirubin,Total 0.4 mg/dl (0.2-1.3); Blood Urea Nitrogen 11 mg/dl (9-20); Calcium 8.5 mg/dl (8.4-10.2); Carbon Dioxide 28 mmol/L (22.0-30.0); Creatinine Clearance Estimated 215 mL/min (50-200); Estimated Glomerular Filt Rate 117 ml/min (>60); GFR (African American) 141 ML/MIN (>60); Globulin 3.2 g/dL (1.3-3.2); Glucose 82 mg/dl (74-100); Lipase 104 U/L (23-300); Total Protein,Serum 7.3 g/dl (6.3-8.2)
--- NOTE | 2024-10-31 20:06 | ED_ITS ---
Discharge Plan Disposition Patient Disposition: Home, Self-Care Prescriptions Prescriptions: New polyethylene glycol 3350 17 gram/dose powder 17 g PO DAILY Qty: 510 0RF famotidine [Pepcid] 20 mg tablet 20 mg PO BID 42 Days Qty: 84 0RF No Action oseltamivir 75 mg capsule 75 mg PO DAILY Qty: 7 0RF [id number]-ohqyuduob-LJ [Bromfed DM] 2-30-10 mg/5 mL syrup 5 ml PO Q4-6H PRN (Reason: cold symptoms) Qty: 118 0RF Referrals Follow up/Referrals: Karla Thompson PA [Primary Care Provider] - See instructions Activity Restrictions/Add. Instructions Additional Instructions/Restrictions: 2 capfuls of MiraLAX daily for the first 3 days then 1 capful thereafter and titrate 1 capful up or down slightly until having 1-2 soft bowel movements daily. Call your family doctor to establish care for this visit to the emergency department and schedule follow-up within 48 hours to ensure improvement. If you have any worsening of your condition or any other concerning signs or symptoms, return to the emergency department or your primary care doctor for further evaluation. Clinical Impressions Clinical Impression: Abdominal pain Instructions Patient Instructions: DI for Acute Abdominal Pain Print Language Print Language: Spanish Discharge ED Provider: Madan Barber General Adult HPI General Chief complaint: Abdominal Pain Stated complaint: Stomach pain Time Seen by Provider: 10/31/24 19:36 Mode of Arrival: Ambulatory Source of Information: Patient Description of Symptoms (Recalled from ER Triage Doc. by RN): Pt presents with c/o upper left sided abd pain that began x2 weeks ago. Denies N/V/D or fever. History of Present Illness HPI narrative: Please note that above description of symptoms, in this electronic medical record under categorization of recalled from ER triage doctor by RN are reflective of an initial nursing assessment, however, is not reflective of my full history and physical exam that was personally taken and clarified. Consequentially, this preceding description of symptoms, which may include the patient's categorized chief complaint in the EMR, do not reflect my personal clinical impression, and the ultimate description of history of present illness and patient stated complaints should be deferred to this section of the note. Unless stated otherwise or congruent with this section of the note, additional signs, symptoms, or incongruence should be interpreted as inaccurate with my clinical impression. Related Data Previous Rx's ?Medication ?Instructions ?Recorded qksrcnmvvnlbzzp-pcnbwibvbleeria-AO 5 ml PO Q4-6H PRN cold symptoms 08/31/24 2 mg-30 mg-10 mg/5 mL oral syrup #118 mL (Bromfed DM) oseltamivir 75 mg capsule 75 mg PO DAILY #7 caps 08/31/24 famotidine 20 mg tablet (Pepcid) 20 mg PO BID 6 weeks #84 tabs 10/31/24 polyethylene glycol 3350 17 17 g PO DAILY #510 grams 10/31/24 gram/dose oral powder Allergies Allergy/AdvReac Type Severity Reaction Status Date / Time Penicillins Allergy Verified 08/31/24 08:18 [facility] Disclaimer: The information contained in this section may have been updated after the patient was seen, as this information can be updated by other users. Medical History Enlarged tonsils Surgical History History of appendectomy Family History Other No significant past medical history Social History Smoking Status: Never smoker alcohol intake: never substance use type: denies use current occupational status: employed Travel in the last 8 weeks: None Have you lived/traveled outside [place] in past 30 days?: No Contact w/someone who lives/traveled outside [place] past 30 days?: No Exposure to someone with infectious disease in past 14 days?: No Do you have a fever (greater than 100.4 F or 38 C)?: No Have you tested positive for COVID-19: No Exposed to someone with COVID-19 in past 14 days?: No Do you have a sore throat?: No Do you have a cough?: No Do you have any weakness?: No Do you have any diarrhea?: No Are you experiencing any unusual bleeding?: No Do you have any muscle aches/pain?: Yes Do you have any abdominal pain?: Yes Are you experiencing loss of taste or smell?: No Other Medical History Have you received the Flu Vaccine for this season: No Have you received the Pneumonia Vaccine: No ROS Obtained: Yes All systems reviewed & no additional complaints except as documented Physical Exam General General appearance: alert and obese Head Head exam: atraumatic and normocephalic Eye Eye exam: Present normal appearance, PERRL and EOMI Neck Neck exam: Present normal inspection, full ROM and trachea midline Respiratory Respiratory exam: Absent respiratory distress, wheezes, stridor, accessory muscle use or prolonged expiratory phase Cardiovascular Cardiovascular exam: Present other (Pulses equal symmetric in upper and lower extremities) Abdominal Exam Abdominal exam: Present soft and tenderness; Absent distention, guarding, rebound, rigidity or pulsatile mass Abdominal tenderness: Present epigastrium and mild Extremities Exam Extremities exam: Absent edema Neurological Exam Neurological exam: Present alert, oriented X3 and CN II-XII intact; Absent motor sensory deficit Skin Skin exam: Present warm and dry; Absent diaphoresis or erythema Medical Decision Making Medical Records Medical records reviewed: Yes I reviewed the patient's medical records. Screening: Per USPSTF and CDC recommendations, given the prevalence of disease in our region, it is our hospital?s policy to screen for HIV and viral Hepatitis for all patients aged 18 and over and those with ongoing risk factors. Lev Inquiry Pt receiving controlled substance: No Lev was queried for this patient: No Vital Signs: 10/31/24 19:46 Temperature 97.6 F Temperature Source Oral Pulse Rate [Right] 99 H Respiratory Rate 14 Blood Pressure [Right Arm] 150/94 H Blood Pressure Mean [Right Arm] 112 Blood Pressure Position [Right Arm] Sitting 02 Sat by Pulse Oximetry 100 Oxygen Delivery Method Room Air Lab Data Lab Results 10/31/24 19:25: HCV Ab DOMINGO w/Rflx PCR Qn Negative, HIV Ag/Ab Combo Qual Negative 10/31/24 19:41: Urine Color Yellow, Urine Appearance Clear, Urine pH 6.0, Ur Specific [place] >= 1.030, Urine Protein Negative, Urine Glucose (UA) Negative, Urine Ketones Negative, Urine Blood Negative, Urine Nitrate Negative, Urine Bilirubin Negative, Urine Urobilinogen 1.0, Ur Leukocyte Esterase Negative, Urine RBC None, Urine WBC 5-10, Ur Squamous Epith Cells 3-5, Urine Bacteria 1+ 10/31/24 19:42: WBC 6.5, RBC 5.17, Hgb 14.4, Hct 42.6, MCV 82.4, MCH 27.9, MCHC 33.8, RDW 13.2, Plt Count 284, MPV 8.8, Neut % (Auto) 68.0, Lymph % (Auto) 15.7, [place] % (Auto) 13.5 H, Eos % (Auto) 1.7, Baso % (Auto) 0.8, Neut # (Auto) 4.4, Lymph # (Auto) 1.0, [place] # (Auto) 0.9, Eos # (Auto) 0.1, Baso # (Auto) 0.1, Sodium 140, Potassium 3.7, Chloride 103, Carbon Dioxide 28, Anion Gap 12.7, BUN 11, Creatinine 0.80, Estimated Creat Clear 215, Estimated GFR 117, Est GFR ( Amer) 141, Glucose 82, Calcium 8.5, Total Bilirubin 0.4, AST 35, ALT 33, Alkaline Phosphatase 85, Total Protein 7.3, Albumin 4.1, Globulin 3.2, Albumin/Globulin Ratio 1.3, Lipase 104 10/31/24 19:42 10/31/24 19:42 Orders (Tests/Meds): ED MEDICATIONS Generic Name Dose Route Start Last Admin Trade Name Freq PRN Reason Stop Dose Admin Sodium Chloride 8 ml 10/31/24 19:43 Sodium Chloride 0.9% 10ml Vial IV 11/30/24 19:42 NEEDED PRN dilute pepcid Discontinued Medications Generic Name Dose Route Start Last Admin Trade Name Freq PRN Reason Stop Dose Admin Al Hydrox/Mg Hydrox/Simethicone 30 ml 10/31/24 19:43 10/31/24 19:58 Aluminum/Magnesium/Simethicone 30ml Udc PO 10/31/24 19:44 30 ml ONCE ONE Administration Famotidine 20 mg 10/31/24 19:43 10/31/24 19:58 Famotidine 20mg/2ml Vial IV 10/31/24 19:44 20 mg ONCE ONE Administration ORDERS Category Date Time Status CBC w/Auto Diff [Complete Blood Count Auto Diff] Stat Lab 10/31/24 19:42 Completed CMP [Comprehensive Metabolic Panel] Stat Lab 10/31/24 19:42 Completed HIV Combo Stat Lab 10/31/24 19:25 Completed Hepatitis C Ab Qual. W/ RFX Stat Lab 10/31/24 19:25 Completed Lipase Stat Lab 10/31/24 19:42 Completed UA [Urinalysis and Microscopic] Stat Lab 10/31/24 19:41 Completed Medical Decision Narrative: 24-year-old male presenting with abdominal pain. Has been going on for a few weeks at this point, 2 or 3. Left upper quadrant/epigastrium, does not radiate. Intermittently he is having left flank pains, but does not feel they are related. Took acetaminophen and this seems to help. No vomiting, diarrhea, fevers, chills, night sweats, no pain like this in the past. He states that he has had an appendectomy. Thinks his gallbladder may be going bad, but does not know where the gallbladder is. Also states that he thinks it might be an ulcer or stomach pain. History was obtained via conversation with patient. On arrival, patient hemodynamically stable, alert, oriented x4, appropriate, GCS 15, moving all extremities spontaneously, pupils equal and reactive to light. Full physical exam performed and significant for obese male no acute distress. Abdomen is soft, minimally tender in epigastrium/left upper quadrant, no overlying skin changes. No signs of peritonitis. Differential includes PUD, gastritis, enteritis, gastroenteritis, pancreatitis, SBO, colitis, diverticulitis, nephrolithiasis, less likely UTI, cholecystitis, choledocholithiasis, torsion, hepatitis, aortic pathology, mesenteric ischemia among others. Patient placed on continuous cardiac monitoring and continuous pulse ox with initial blood pressure 150/94, heart rate 99, saturation 100% on room air. Patient was given Pepcid and Maalox for symptomatic management and correction of underlying abnormalities. Workup independently interpreted and significant for nonactionable CBC or chemistry. Lipase negative. Urinalysis without concern for UTI. CT scan considered, but not deemed necessary. Patient has benign abdomen, benign labs, and improvement with conservative management with meds, deemed unnecessary and I feel radiation risks of 24-year-old does not outweigh benefit. Reevaluation, patient states he is feeling much better, still having some discomfort, but no overt pain. I feel this is consistent with constipation versus mild gastritis. Further conversation reveals that patient normally has a small, pellet stools and intermittently has diarrhea, this sounds consistent with chronic constipation with ongoing paresis and I feel patient probably would benefit from outpatient bowel regimen slowly. Discussed 2 capfuls of MiraLAX daily for the first 3 days then 1 capful thereafter and titrate 1 capful up or down slightly until having 1-2 soft bowel movements daily. Also discussed outpatient follow-up with gastroenterology if this does not get better. Voiced his understanding. Because patient at baseline without signs or symptoms of clinical decompensation, deemed appropriate for discharge. Results were relayed to patient who voiced understanding and were agreeable to outpatient management and follow up. I discussed my clinical impression with patient and answered all questions. At this time, the evidence for any other entities in the differential is insufficient to warrant any further testing or ED observation. This was explained as well. Advisory was given that persistent or worsening symptoms require further evaluation. I confirmed the understanding of this discussion. Dental Ceramist Assistant disclaimer Much of this encounter note is an electronic chief nursing officer spoken language to printed text. Electronic chief nursing officer of the spoken language may permit errors. Although I have reviewed the note, some errors may still exist. Critical Care Critical Care Time Critical Care Time: No
[2024-10-31 20:12] LABS: Bacteria,Urine 1+ /lpf
[2024-10-31 20:56] LABS: HIV Combo NEGATIVE (Negative)
[2024-10-31 21:01] LABS: Hepatitis C Ab Qual. W/ RFX NEGATIVE (Negative)
[2024-10-31 21:15] VITALS: BP 105/75; PULSE 96; RESP 16; TEMP 36.4; O2SAT 100
== END 2024-10-31 21:16 | disposition home or self-care (01) ==
PROVIDERS: Emergency Provider Emergency Medicine; PCP Physician Assistant
DX: R10.12 Left upper quadrant pain (principal); R10.13 Epigastric pain; Z11.59 Encounter for screening for other viral diseases; Z11.4 Encounter for screening for human immunodeficiency virus [HIV]
CPT/HCPCS: 80053; 81001; 83690; 85025; 86803; 87389; 96374; 99284